=== PATIENT | female | born 1985 | race Asian ===

== ENCOUNTER 2019-01-07 02:33 | Emergency (ER) | payer OTHER ==
--- NOTE | 2019-01-07 03:17 | ED Physician Documentation ---
PD HPI ABD PAIN - Stated complaint Stated Complaint: ABD PAIN - Chief complaint Chief Complaint: Abd Pain - History obtained from History obtained from: Patient - History of Present Illness Timing - onset: Yesterday (starting after lunch, usual food at [employer], had onset of upper abd pain with nausea that has lasted all day into overnight now. Nausea with emesis x 2. Had couple loose stools. Has had similar milder symtoms with eating at times the past couple weeks, but usually improves in an hour or so.) Timing - duration: Hours (12) Timing - details: Abrupt onset, Still present, Constant Quality: Cramping, Aching, Pain Location: Epigastric. No: RUQ Improved by: No: Vomiting Worsened by: Eating, Position, Palpation. No: Breathing Associated symptoms: Nausea, Vomiting (twice). No: Fever, Diarrhea (but had 2 loose stools since onset), Constipation, Melena Similar symptoms before: No diagnosis (has had epigastric pains with eating at times the past couple weeks.) Recently seen: Not recently seen Review of Systems Constitutional: denies: Fever, Chills Nose: denies: Rhinorrhea / runny nose, Congestion Throat: denies: Sore throat Respiratory: denies: Cough GI: reports: Abdominal Pain, Nausea, Vomiting. 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 : None HEENT: None Psych: None Musculoskeletal: None Derm: None - Past Surgical History Past Surgical History: No - Present Medications Home Medications: Ambulatory Orders Medication Instructions Recorded Confirmed Acetaminophen [Tylenol] 650 mg PO Q6H PRN #30 tablet 01/07/19 Famotidine 20 mg PO DAILY #30 tablet 01/07/19 Lidocaine Viscous 2% [Xylocaine 5 ml PO Q4H PRN #100 ml 01/07/19 Viscous 2%] Ondansetron Odt [Zofran] 4 mg TL Q6H PRN #15 tablet 01/07/19 - Allergies Allergies/Adverse Reactions: Allergies Allergy/AdvReac Type Severity Reaction Status Date / Time No Known Drug Allergies Allergy Verified 01/07/19 02:40 - Social History Does the pt smoke?: No Smoking Status: Never smoker Does the pt drink ETOH?: No Does the pt have substance abuse?: No - Immunizations Immunizations are current?: Yes - POLST Patient has POLST: No PD ED PE NORMAL - Vitals Vital signs reviewed: Yes - General General: Alert and oriented X 3, No acute distress, Well developed/nourished - HEENT HEENT: Pharynx benign - Neck Neck: Supple, no meningeal sign, No adenopathy - Cardiac Cardiac: RRR, No murmur - Respiratory Respiratory: Clear bilaterally - Abdomen Abdomen: Normal bowel sounds, Soft, Non distended, No organomegaly, Other (Tender in the epigastric area. Not tender in the lower abdomen not particularly tender in the right upper quadrant.) - Female Female : Deferred - Rectal Rectal: Deferred - Back Back: No CVA TTP - Derm Derm: Normal color, Warm and dry - Extremities Extremities: No tenderness to palpate, No edema, No calf tenderness / cord - Neuro Neuro: Alert and oriented X 3, No motor deficit, Normal speech Results - Vitals Vitals: Vital Signs - 24 hr 01/07/19 01/07/19 01/07/19 02:37 02:40 03:48 Temperature 37.1 C Heart Rate 78 Respiratory 17 17 16 Rate Blood Pressure 108/75 O2 Saturation 98 01/07/19 04:50 Temperature Heart Rate 64 Respiratory 16 Rate Blood Pressure 109/73 O2 Saturation 97 Oxygen O2 Source Room air - Labs Labs: Laboratory Tests 01/07/19 01/07/19 04:30 04:30 WBC 8.9 RBC 4.42 Hgb 13.3 Hct 41.0 MCV 92.8 MCH 30.1 MCHC 32.4 RDW 11.8 L Plt Count 256 MPV 9.4 Neut # (Auto) 7.3 H Lymph # (Auto) 1.1 L [place] # (Auto) 0.3 Eos # (Auto) 0.1 Baso # (Auto) 0.0 Absolute Nucleated RBC 0.00 Nucleated RBC % 0.0 Sodium 140 Potassium 4.0 Chloride 105 Carbon Dioxide 26 Anion Gap 9.0 BUN 22 H Creatinine 0.5 Estimated GFR (MDRD) 143 Glucose 121 H Calcium 9.3 Total Bilirubin 0.9 AST 23 ALT 22 Alkaline Phosphatase 45 Total Protein 8.3 H Albumin 4.6 Globulin 3.7 Albumin/Globulin Ratio 1.2 Lipase 33 Procedures - Bedside sono Bedside sono by EMP: Right upper quadrant focused abdominal ultrasound of the gallbladder showed a possible small stone with shadowing but did not seem mobile. There is no wall thickening and no pericholecystic fluid. The possible stone was not near the neck. Common bile duct did not appear dilated. PD MEDICAL DECISION MAKING - ED course Complexity details: reviewed results, re-evaluated patient (She is feeling better after some IV fluids antiemetic and GI cocktail.), considered differential (Seems likely gastritis or food related. Consider food poisoning but she did eat at a [employer] and no other people are here with similar symptoms. She has had some milder symptoms over the past week or 2. Consider gastritis or early ulcer. Will check labs to ensure her pancreas is good and I can do bedside ultrasound to look at the gallbladder.), d/w patient Departure - Departure Disposition: Home, Self Care Clinical Impression: Epigastric pain Gastritis Qualifiers: Gastritis type: unspecified gastritis Chronicity: acute Gastritis bleeding: without bleeding Qualified Code(s): K29.00 - Acute gastritis without bleeding Condition: Stable Record reviewed to determine appropriate education?: Yes Instructions: ED PUD Vs Gastritis Follow-Up: [facility] [Provider Group] Prescriptions: Acetaminophen [Tylenol] 650 mg PO Q6H PRN #30 tablet PRN Reason: PRN PAIN &/OR FEVER Famotidine 20 mg PO DAILY #30 tablet Lidocaine Viscous 2% [Xylocaine Viscous 2%] 5 ml PO Q4H PRN #100 ml PRN Reason: Pain Ondansetron Odt [Zofran] 4 mg TL Q6H PRN #15 tablet PRN Reason: Nausea / Vomiting Comments: Frequent fluids and bland food. Use famotidine acid reducing medicine daily for the next month. Ondansetron if needed for nausea. Antacid such as Maalox or Mylanta and can use with some of the lidocaine if needed for stomach pains. Add Tylenol if needed for pains. I think this is an irritation of the stomach called gastritis. I would anticipate improvement with the above medications over the next several days to next week. Follow-up with your primary care this coming week if not fully improved or any consistent symptoms. Return as needed.
[2019-01-07] MEDS ORDERED: SODIUM CHLORIDE 0.9% 1,000 ML IV ONE (04:23)
[2019-01-07] MEDS ORDERED: MAG HYDROX/AL HYDROX/SIMETH 30 ML UDC PO STA (04:24)
[2019-01-07] MEDS ORDERED: LIDOCAINE VISCOUS 2% 15 ML UDC MM STA (04:24)
[2019-01-07] MEDS ORDERED: ONDANSETRON 4 MG/2 ML VIAL IVP STA (04:24)
[2019-01-07] MEDS ORDERED: FAMOTIDINE 20 MG/2 ML VIAL IVP STA (04:24)
[2019-01-07 04:43] LABS: BASOPHILS % (AUTO) 0.4 %; EOSINOPHILS # (AUTO) 0.1 10^3/uL (0.0-0.7); EOSINOPHILS % (AUTO) 1.3 %; HGB - HEMOGLOBIN 13.3 g/dL (12.0-16.0); LYMPHOCYTES # (AUTO) 1.1 10^3/uL (1.5-3.5); LYMPHOCYTES % (AUTO) 12.3 %; MEAN CORPUSCULAR HEMOGLOBIN 30.1 pg (27.0-31.0); MEAN CORPUSCULAR HGB CONC 32.4 g/dL (32.0-36.0); MEAN CORPUSCULAR VOLUME 92.8 fL (81.0-99.0); MEAN PLATELET VOLUME 9.4 fL (7.9-10.8); MONOCYTES # (AUTO) 0.3 10^3/uL (0.0-1.0); MONOCYTES % (AUTO) 3.8 %; NEUTROPHILS # (AUTO) 7.3 10^3/uL (1.5-6.6); PLT - PLATELET COUNT 256 10^3/uL (130-450); RED BLOOD COUNT 4.42 10^6/uL (4.20-5.40); RED CELL DISTRIBUTION WIDTH 11.8 % (12.0-15.0); WHITE BLOOD COUNT 8.9 x10^3/uL (4.8-10.8)
[2019-01-07 04:56] LABS: ALBUMIN 4.6 g/dL (3.2-5.5); ALBUMIN/GLOBULIN RATIO 1.2 (1.0-2.2); BILIRUBIN,TOTAL 0.9 mg/dL (0.2-1.0); CALCIUM 9.3 mg/dL (8.5-10.3); CREATININE 0.5 mg/dL (0.4-1.0); TOTAL PROTEIN 8.3 g/dL (6.7-8.2)
[2019-01-07 05:40] VITALS: BP 102/72
== END 2019-01-07 05:55 | disposition home or self-care (01) ==
LOC: ED 02:33
DX: K29.00 Acute gastritis without bleeding (principal)
CPT/HCPCS: 36415; 80053; 83690; 85025; 96361; 96374; 99283; 99284; A9270

== ENCOUNTER 2019-02-22 14:03 | Emergency (ER) | payer OTHER ==
[2019-02-22 14:41] LABS: BASOPHILS % (AUTO) 0.7 %; EOSINOPHILS # (AUTO) 0.3 10^3/uL (0.0-0.7); EOSINOPHILS % (AUTO) 4.3 %; HGB - HEMOGLOBIN 12.3 g/dL (12.0-16.0); LYMPHOCYTES # (AUTO) 1.6 10^3/uL (1.5-3.5); LYMPHOCYTES % (AUTO) 26.9 %; MEAN CORPUSCULAR HEMOGLOBIN 29.6 pg (27.0-31.0); MEAN CORPUSCULAR HGB CONC 32.5 g/dL (32.0-36.0); MEAN CORPUSCULAR VOLUME 90.9 fL (81.0-99.0); MEAN PLATELET VOLUME 9.8 fL (7.9-10.8); MONOCYTES # (AUTO) 0.3 10^3/uL (0.0-1.0); MONOCYTES % (AUTO) 5.4 %; NEUTROPHILS # (AUTO) 3.6 10^3/uL (1.5-6.6); NEUTROPHILS % (AUTO) 62.5 %; PLT - PLATELET COUNT 224 10^3/uL (130-450); RED BLOOD COUNT 4.16 10^6/uL (4.20-5.40); RED CELL DISTRIBUTION WIDTH 11.9 % (12.0-15.0); WHITE BLOOD COUNT 5.8 x10^3/uL (4.8-10.8)
[2019-02-22 14:59] LABS: CREATININE 0.5 mg/dL (0.4-1.0)
[2019-02-22 15:00] LABS: ALBUMIN 4.3 g/dL (3.2-5.5); ALBUMIN/GLOBULIN RATIO 1.4 (1.0-2.2); BILIRUBIN,TOTAL 0.5 mg/dL (0.2-1.0); CALCIUM 9.5 mg/dL (8.5-10.3); TOTAL PROTEIN 7.3 g/dL (6.7-8.2)
--- NOTE | 2019-02-22 16:34 | ED Physician Documentation ---
History of Present Illness - Stated complaint Stated Complaint: ABD PX - Chief complaint Chief Complaint: Abd Pain - Additonal information Additional information: This is a 33-year-old female who presents with worsened right upper quadrant pa in. Patient states that for several months she has had intermittent pain in the upper part of her abdomen and on the right side of her abdomen which has come and gone and usually starts after eating food, and lasts anywhere from minutes to several hours. This morning after eating breakfast she had worsened pain and it has persisted throughout the day so she presents here for further Evaluation. She has tried famotidine for the past month without relief. She denies vomiting but at times will have some nausea. No fever. No history of abdominal surgeries. 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 : None HEENT: None Psych: None Musculoskeletal: None Derm: None - Past Surgical History Past Surgical History: No - Present Medications Home Medications: Ambulatory Orders Medication Instructions Recorded Confirmed Acetaminophen [Tylenol] 650 mg PO Q6H PRN #30 tablet 01/07/19 Famotidine 20 mg PO DAILY #30 tablet 01/07/19 Lidocaine Viscous 2% [Xylocaine 5 ml PO Q4H PRN #100 ml 01/07/19 Viscous 2%] Ondansetron Odt [Zofran] 4 mg TL Q6H PRN #15 tablet 01/07/19 Acetaminophen 650 mg PO Q6HR #30 tablet 02/22/19 Ondansetron Odt [Zofran] 4 mg TL Q6H PRN #10 tablet 02/22/19 - Allergies Allergies/Adverse Reactions: Allergies Allergy/AdvReac Type Severity Reaction Status Date / Time No Known Drug Allergies Allergy Verified 01/07/19 02:40 - Social History Does the pt smoke?: No Smoking Status: Never smoker Does the pt drink ETOH?: No Does the pt have substance abuse?: No - Immunizations Immunizations are current?: Yes - POLST Patient has POLST: No PD ED PE NORMAL - Vitals Vital signs reviewed: Yes - General General: Alert and oriented X 3, No acute distress - HEENT HEENT: PERRL - Neck Neck: Supple, no meningeal sign - Cardiac Cardiac: RRR, No murmur - Respiratory Respiratory: Clear bilaterally - Abdomen Abdomen: Other (Soft, nondistended there is tenderness palpation in the right upper quadrant, negative Diaz sign, no guarding. No left upper quadrant or lower abdominal tenderness) - Derm Derm: Warm and dry - Extremities Extremities: No deformity - Neuro Neuro: Alert and oriented X 3 - Psych Psych: Normal mood, Normal affect Results - Vitals Vitals: Oxygen O2 Source Room air - Labs Labs: Microbiology 02/22/19 17:48 Urine Culture - Final Urine,Clean Catch >100,000 COLONIES/ML Polymicrobial growth including potential pathogens. This is suggestive of skin or other contamination. Laboratory Tests 02/22/19 02/22/19 02/22/19 14:30 14:30 17:48 WBC 5.8 RBC 4.16 L Hgb 12.3 Hct 37.8 MCV 90.9 MCH 29.6 MCHC 32.5 RDW 11.9 L Plt Count 224 MPV 9.8 Neut # (Auto) 3.6 Lymph # (Auto) 1.6 [place] # (Auto) 0.3 Eos # (Auto) 0.3 Baso # (Auto) 0.0 Absolute Nucleated RBC 0.00 Nucleated RBC % 0.0 Sodium 140 Potassium 3.6 Chloride 107 Carbon Dioxide 27 Anion Gap 6.0 BUN 21 H Creatinine 0.5 Estimated GFR (MDRD) 143 Glucose 125 H Calcium 9.5 Total Bilirubin 0.5 AST 19 ALT 18 Alkaline Phosphatase 47 Total Protein 7.3 Albumin 4.3 Globulin 3.0 Albumin/Globulin Ratio 1.4 Lipase 45 Urine Color YELLOW Urine Clarity HAZY Urine pH 6.5 Ur Specific [place] 1.025 Urine Protein NEGATIVE Urine Glucose (UA) NEGATIVE Urine Ketones NEGATIVE Urine Occult Blood MODERATE H Urine Nitrite NEGATIVE Urine Bilirubin NEGATIVE Urine Urobilinogen 0.2 (NORMAL) Ur Leukocyte Esterase SMALL H Urine RBC 6-10 H Urine WBC >25 H Ur Squamous Epith Cells FEW Squamous Amorphous Sediment Rare Urine Bacteria Few Ur Microscopic Review INDICATED Urine Culture Comments INDICATED - Rads (name of study) RUQ Radiology: Other (Cholelithiasis with stone in the gallbaldder neck, no signs of cholecystitis) PD MEDICAL DECISION MAKING - ED course Complexity details: considered differential (Biliary colic, cholecystitis, choledocolithiasis, gastritis, pancreatitis) ED course: Pt presents with worsening of intermittent RUQ abdominal pain that has been present for months and not responding to famotidine. Labs are unrevealing with no leukocytosis or LFT changes. HCG negative. US shows multiple gallstones. Her history of worsening after eating is consistent with biliary colic. After oxycodone and zofran her pain is almost completely gone and she is able to tolerate PO without issue. I discussed that she needs close follow up with a general surgeon and cholecystectomy. I discussed return precautions with any worsening, persistent vomiting, fever, jaundice, or other concerning symptoms. UA shows WBC, but patient has no dysuria or lower abdominal pain or fever. We will let this culture. Pt agrees and was discharged home. Follow up on Urine culture on 02/25 shows polymicrobial growth, making UTI unlikely. Departure - Departure Disposition: Home, Self Care Clinical Impression: Biliary colic Condition: Good Instructions: ED Gallstone W Biliary Colic Follow-Up: Clara Messer MD [Provider Admit Priv/Credential] - Prescriptions: Acetaminophen 650 mg PO Q6HR #30 tablet Ondansetron Odt [Zofran] 4 mg TL Q6H PRN #10 tablet PRN Reason: Nausea / Vomiting Comments: You have a stone in the neck of your gallbladder which is likely causing your pain. I am glad you are feeling better but you do need to get her gallbladder removed or your pain will likely continue to reoccur. Please follow-up with your primary care provider and obtain a referral to general surgery. I have a lso provided you with contact information for Dr. Messer, a general surgeon here at [facility]. You may take the Zofran and Tylenol for your symptoms, if you are having severe pain, persistent vomiting, or other concerning symptoms, return to the emergency department for reevaluation. Avoid fatty meals as this can make your pain worse Forms: Activity restrictions Discharge Date/Time: 02/22/19 18:36
--- NOTE | 2019-02-22 17:11 | Ultrasound Report ---
Reason: upper abd pain, nausea Procedure Date: 02/22/2019 Accession Number: [id number] / [id number] Procedure: US - Abdomen Limited CPT Code: Final Report FULL RESULT: EXAM: ABDOMEN ULTRASOUND LIMITED, RUQ EXAM DATE: 02/22/2019 04:47 PM. CLINICAL HISTORY: Upper abdominal pain, nausea. COMPARISON: None. TECHNIQUE: Real-time scanning was performed with static images obtained. FINDINGS: Liver: Mildly hyperechoic liver echotexture. No focal lesions. 15.9 cm. Main portal vein flow: Hepatopetal. Gallbladder: There are two mobile stones within the gallbladder measuring 2.0 and 1.6 cm. A 1.5 cm gallbladder neck stone is also noted. Gallbladder is mildly distended. No gallbladder wall thickening or pericholecystic fluid collections. Biliary System: CBD measures 5 mm. No intrahepatic or extrahepatic ductal dilatation. Other: No right hydronephrosis. The visualized pancreas is unremarkable. IMPRESSION: 1. Distended gallbladder containing stones measuring up to 2.0 cm. No additional findings suggestive of acute cholecystitis or bile duct obstruction. RADIA
[2019-02-22] MEDS ORDERED: oxyCODONE 5 MG TABLET PO STA (17:17)
[2019-02-22] MEDS ORDERED: ACETAMINOPHEN 325 MG TABLET PO STA (17:17)
[2019-02-22] MEDS ORDERED: ONDANSETRON ODT 4 MG TABLET TL STA (17:17)
[2019-02-22 18:26] LABS: BILIRUBIN,URINE NEGATIVE (NEGATIVE); GLUCOSE, URINE (UA) NEGATIVE (NEGATIVE); KETONES,URINE (UA) NEGATIVE (NEGATIVE); LEUKOCYTE ESTERASE, URINE SMALL (NEGATIVE); NITRITE,URINE NEGATIVE (NEGATIVE); OCCULT BLOOD,URINE MODERATE (NEGATIVE); PH,URINE 6.5 PH (5.0-7.5); PROTEIN,URINE NEGATIVE (NEGATIVE); UROBILINOGEN,URINE 0.2 (NORMAL) E.U./dL (NORMAL)
[2019-02-22 18:27] LABS: CLARITY,URINE HAZY (CLEAR)
[2019-02-22 18:38] LABS: AMORPHOUS SEDIMENT,UR Rare /LPF; BACTERIA,URINE Few /HPF (None Seen); SQUAMOUS EPITHELIAL CELL,UR FEW Squamous (<= Few)
[2019-02-22 18:56] VITALS: BP 130/74
== END 2019-02-22 18:36 | disposition home or self-care (01) ==
LOC: ED 14:03
DX: K80.20 Calculus of gallbladder without cholecystitis without obstruction (principal)
CPT/HCPCS: 36415; 76705; 80053; 81001; 83690; 85025; 87086; 99284; A9270; Q0162; 81003

== ENCOUNTER 2019-03-10 08:24 | Day surgery (SDC) | payer OTHER ==
[2019-03-10] MEDS ORDERED: LACTATED RINGERS 1,000 ML IV ONE ×2 (08:36→12:48)
[2019-03-10] MEDS ORDERED: CEFAZOLIN SODIUM IN 0.9 % NACL 2 GM/100 ML BAG IV ONE (08:52)
[2019-03-10] MEDS: ENOXAPARIN 30 MG/0.3 ML SYRINGE SUBQ ONE ×2 (09:18→12:42)
[2019-03-10 09:19] LABS: HCG UR QUAL NEGATIVE
--- NOTE | 2019-03-10 10:01 | ANESTHESIA ---
Pre-Anesthesia VS, & Labs - Diagnosis cholecystitis, cholelithiasis - Procedure Lap tanika Vital Signs: Temp Pulse Resp BP Pulse Ox 36.0 C L 54 L 16 121/70 97 03/10/19 08:36 03/10/19 08:36 03/10/19 08:36 03/10/19 08:36 03/10/19 08:36 Height 5 ft Weight (kg) 70 kg Body Mass Index 28.3 - NPO >8 hours - Is Patient ?: No Home Medications and Allergies Home Medications: Ambulatory Orders No Known Home Medications 03/06/19 No Known Home Medications 03/06/19 Allergies/Adverse Reactions: Allergies Allergy/AdvReac Type Severity Reaction Status Date / Time No Known Drug Allergies Allergy Verified 01/07/19 02:40 Anes History & Medical History - Anesthetic History Family history of Anesthesia Complications: Denies Family history of Malignant Hyperthermia: Denies - Medical History Cardiovascular: reports: None Pulmonary: reports: None Gastrointestinal: reports: GERD, Cholelithiasis Urinary: reports: None Neuro: reports: None Musculoskeletal: reports: None Endocrine/Autoimmune: reports: None Blood Disorders: reports: None Skin: reports: None Smoking Status: Never smoker Exam General: Alert, Oriented x3, Cooperative, No acute distress Dental: WNL Mouth Openin Fingerbreadth Neck Mobility: Normal Mallampati classification: II Thyromental Distance: greater than 6 cm Respiratory: Lungs clear, Normal breath sounds, No respiratory distress, No accessory muscle use Cardiovascular: Regular rate, Normal S1, Normal S2, No murmurs Mental/Cognitive Status: Alert/Oriented X3, Normal for patient Plan Anesthesia Type: General Consent for Procedure(s) Verified and Reviewed: Yes Code Status: Attempt Resuscitation ASA classification: 1-Healthy patient Is this case an emergency?: No
[2019-03-10] MEDS ORDERED: LIDOCAINE 1%-EPI 1:100000 20 ML MDV ONE (10:15)
[2019-03-10] MEDS ORDERED: DEXAMETHASONE 4 MG/ML VIAL IVP ONE (11:45)
[2019-03-10] MEDS ORDERED: PROPOFOL 200 MG/20 ML VIAL IVP ONE (11:45)
[2019-03-10] MEDS ORDERED: fentaNYL 250 MCG/5 ML VIAL IVP ONE (11:45)
[2019-03-10] MEDS ORDERED: KETOROLAC 30 MG/ML VIAL IVP ONE (11:45)
[2019-03-10] MEDS ORDERED: GLYCOPYRROLATE 1 MG/5 ML VIAL IVP ONE (11:45)
[2019-03-10] MEDS ORDERED: NEOSTIGMINE 1 MG/1 ML 10 ML MDV IVP ONE (11:45)
[2019-03-10] MEDS ORDERED: ONDANSETRON 4 MG/2 ML VIAL IVP ONE (11:45)
[2019-03-10] MEDS ORDERED: ROCURONIUM 50 MG/5 ML VIAL IVP ONE (11:45)
[2019-03-10] MEDS ORDERED: ePHEDrine 50 MG/ML VIAL IVP ONE (11:45)
[2019-03-10] MEDS ORDERED: MIDAZOLAM 2 MG/2 ML VIAL IVP ONE (11:45)
[2019-03-10] MEDS ORDERED: LIDOCAINE-MPF 2% 5 ML VIAL IM ONE (11:45)
[2019-03-10] MEDS ORDERED: oxyCODONE 5 MG TABLET PO PRN (14:11)
[2019-03-10] MEDS ORDERED: ONDANSETRON 4 MG/2 ML VIAL IVP PRN (14:11)
[2019-03-10] MEDS ORDERED: IBUPROFEN 600 MG TABLET PO PRN (14:11)
[2019-03-10] MEDS ORDERED: ACETAMINOPHEN 325 MG TABLET PO PRN (14:11)
--- NOTE | 2019-03-10 14:13 | IMMEDIATE POSTOPERATIVE NOTE ---
Immediate Postoperative Note - Procedure Note Procedure Date: 03/10/19 Pre-Op Diagnosis: Cholecystitis / lithiasis Procedure: Lap tanika Post-Op Diagnosis: Same Primary Surgeon: Janie Anesthesia Type: General ET tube, Local Findings: Markedly enlarged GB w/stones Complications: No complications Estimated Blood Loss (in cc): 5 Specimens and Cultures: Gallbladder
[2019-03-10] MEDS: fentaNYL 100 MCG/2 ML VIAL ONE ×4 (14:23→14:38)
[2019-03-10] MEDS ORDERED: ONDANSETRON 4 MG/2 ML VIAL ONE (15:24)
[2019-03-10] MEDS ORDERED: oxyCODONE 5 MG TABLET ONE (16:25)
[2019-03-10 17:08] VITALS: BP 106/75
--- NOTE | 2019-03-10 20:32 | OPERATIVE REPORT ---
DATE OF SERVICE: 03/10/2019 Physician: Shay Lima DO DATE OF SURGERY: 03/10/2019 PREOPERATIVE DIAGNOSIS: Cholecystitis/cholelithiasis. POSTOPERATIVE DIAGNOSIS: Cholecystitis/cholelithiasis. PROCEDURE PERFORMED: Laparoscopic cholecystectomy. SURGEON: Shay Lima DO RICARDO: Evan Conway MD FORGE HELPER: Lauro Hamilton CRNA TYPE OF ANESTHESIA: General endotracheal tube with local assist. ESTIMATED BLOOD LOSS: 5 mL. FINDINGS: Patient's gallbladder was markedly enlarged and had 3 large stones down near the neck. Ot herwise, no other significant abnormalities were visualized. COMPLICATIONS: None. CONDITION: Stable upon transfer to recovery. HISTORY: Alfonso Sales is a 33-year-old female with signs and symptoms consistent with cholecystitis and ultrasound evidence indicating cholelithiasis. There was no history of elevated liver enzymes, j aundice, acholic stools or darkened urine. The ultrasound was positive for stones. PROCEDURE IN DETAIL: The patient was taken to the operating room and under the above-mentioned anest hetic, prepped and draped in the usual sterile manner. A vertically oriented intraumbilical incision was utilized to gain entrance into the abdominal cavity by way of the Visiport system. Once in the abdominal cavity, the 3 working ports were placed under direct vision and the fundus of the gallbladd er identified and placed on anterior traction. The infundibulum was identified and placed on gentle anterolateral traction. Dissection was carried down to visualize the cystic duct where it joined the common bile duct but at no time was the common bile duct manipulated, injured or otherwise harmed. Eventually, the cystic duct was dissected cleanly and our attention was then turned to the cystic art jocelynn. It likewise was dissected and skeletonized. It was triply stapled and divided between the top 2 holly. The cystic duct was likewise triply stapled and divided between the top 2 holly. The g allbladder was then excised out of the liver bed using electrocautery and eventually removed through the umbilical port in the usual manner. The EndoCatch bag was utilized. Re-examination of the liver bed revealed no evidence for bleeding or bile leak and after copious irri gation with sterile saline solution and evacuation of as much of this irrigant as possible, a piece o f Surgicel was placed for added hemostatic and bacteriostatic security. The patient was then placed in the supine position and the umbilical port was closed with a single 0-Vicryl suture using the [facility] device. The pneumoperitoneum was then released, as we visualized the 5 mm ports being re moved and finding no bleeding. The fascia was then approximated using 0-Vicryl and the skin margins all joined with running undyed subcuticular 4-0 Monocryl and Dermabond over that. The patient was tr ansported to recovery in stable condition. TD: 03/10/2019 14:20
== END 2019-03-10 08:25 | disposition home or self-care (01) ==
LOC: SDS 08:24
PROVIDERS: ATTEND Surgery
PROC: 0FT44ZZ Resection of Gallbladder, Percutaneous Endoscopic Approach (ICD-10-PCS; principal; 2019-03-10 09:15)
DX: K80.10 Calculus of gallbladder with chronic cholecystitis without obstruction (principal)
CPT/HCPCS: 47562; 81025; A9270; J0690; J1650; J3010; J7120

== ENCOUNTER 2019-03-21 09:45 | Emergency (ER) | payer OTHER ==
[2019-03-21 11:28] LABS: BASOPHILS # (AUTO) 0.1 10^3/uL (0.0-0.1); BASOPHILS % (AUTO) 0.9 %; EOSINOPHILS # (AUTO) 0.4 10^3/uL (0.0-0.7); EOSINOPHILS % (AUTO) 6.7 %; HGB - HEMOGLOBIN 12.4 g/dL (12.0-16.0); LYMPHOCYTES # (AUTO) 1.4 10^3/uL (1.5-3.5); LYMPHOCYTES % (AUTO) 24.5 %; MEAN CORPUSCULAR HEMOGLOBIN 29.2 pg (27.0-31.0); MEAN CORPUSCULAR VOLUME 91.3 fL (81.0-99.0); MEAN PLATELET VOLUME 9.5 fL (7.9-10.8); MONOCYTES # (AUTO) 0.3 10^3/uL (0.0-1.0); MONOCYTES % (AUTO) 5.7 %; NEUTROPHILS # (AUTO) 3.6 10^3/uL (1.5-6.6); NEUTROPHILS % (AUTO) 61.9 %; PLT - PLATELET COUNT 252 10^3/uL (130-450); RED BLOOD COUNT 4.25 10^6/uL (4.20-5.40); RED CELL DISTRIBUTION WIDTH 12.1 % (12.0-15.0); WHITE BLOOD COUNT 5.8 x10^3/uL (4.8-10.8)
[2019-03-21 11:45] LABS: ALBUMIN 4.5 g/dL (3.2-5.5); ALBUMIN/GLOBULIN RATIO 1.4 (1.0-2.2); BILIRUBIN,TOTAL 0.8 mg/dL (0.2-1.0); CALCIUM 9.3 mg/dL (8.5-10.3); CREATININE 0.7 mg/dL (0.4-1.0); TOTAL PROTEIN 7.8 g/dL (6.7-8.2)
[2019-03-21 12:45] LABS: BILIRUBIN,URINE NEGATIVE (NEGATIVE); GLUCOSE, URINE (UA) NEGATIVE (NEGATIVE); KETONES,URINE (UA) NEGATIVE (NEGATIVE); LEUKOCYTE ESTERASE, URINE LARGE (NEGATIVE); NITRITE,URINE NEGATIVE (NEGATIVE); OCCULT BLOOD,URINE SMALL (NEGATIVE); PROTEIN,URINE NEGATIVE (NEGATIVE); UROBILINOGEN,URINE 0.2 (NORMAL) E.U./dL (NORMAL)
[2019-03-21 12:46] LABS: CLARITY,URINE HAZY (CLEAR)
[2019-03-21 12:47] LABS: HCG UR QUAL NEGATIVE
[2019-03-21] MEDS ORDERED: FAMOTIDINE 20 MG TABLET PO STA (12:53)
[2019-03-21] MEDS ORDERED: ACETAMINOPHEN 325 MG TABLET PO STA (12:53)
[2019-03-21] MEDS ORDERED: LIDOCAINE VISCOUS 2% 15 ML UDC MM STA (12:53)
[2019-03-21] MEDS ORDERED: MAG HYDROX/AL HYDROX/SIMETH 30 ML UDC PO STA (12:53)
[2019-03-21 13:01] LABS: AMORPHOUS SEDIMENT,UR Moderate /LPF; BACTERIA,URINE Rare /HPF (None Seen); RBC,URINE 0-5 /HPF (0-5); SQUAMOUS EPITHELIAL CELL,UR MOD Squamous (<= Few)
--- NOTE | 2019-03-21 13:33 | ED Physician Documentation ---
PD HPI ABD PAIN - Stated complaint Stated Complaint: ABD PX - Chief complaint Chief Complaint: Abd Pain - History obtained from History obtained from: Patient - History of Present Illness Timing - onset: How many days ago (few) Timing - duration: Days (few) Timing - details: Gradual onset, Intermittant Quality: Aching, Pain, Other (burning) Location: Epigastric Radiation: No: Lower back Improved by: Laying still, Position Worsened by: Eating. No: Breathing, Palpation Associated symptoms: Nausea. No: Fever, Vomiting, Diarrhea Recently seen: Surgery (11 days ago, had CCY due to cholecystitis and RUQ abd pain. Incisions healing okay without infection. No fevers.) Review of Systems Constitutional: denies: Fever, Myalgias Nose: denies: Rhinorrhea / runny nose, Congestion Throat: denies: Sore throat Respiratory: denies: Cough GI: reports: Abdominal Pain, Constipation, Diarrhea. denies: Abdominal Swelling, Vomiting : denies: Dysuria, Frequency Skin: denies: Rash, Lesions PD PAST MEDICAL HISTORY - Past Medical History Past Medical History: Yes Cardiovascular: None Respiratory: None Neuro: None Endocrine/Autoimmune: None GI: GERD, Cholelithiasis SDE: None : None HEENT: Chronic vision loss Psych: None Musculoskeletal: None Derm: None - Past Surgical History Past Surgical History: Yes General: Cholecystectomy (11 days ago) - Present Medications Home Medications: Ambulatory Orders Medication Instructions Recorded Confirmed oxyCODONE [Roxicodone] 5 mg PO Q6H PRN #30 tablet 03/10/19 Acetaminophen [Tylenol] 650 mg PO Q6H PRN #30 tablet 03/21/19 Famotidine 20 mg PO DAILY #30 tablet 03/21/19 Lidocaine Viscous 2% [Xylocaine 5 ml PO Q4H PRN #100 ml 03/21/19 Viscous 2%] - Allergies Allergies/Adverse Reactions: Allergies Allergy/AdvReac Type Severity Reaction Status Date / Time No Known Drug Allergies Allergy Verified 03/21/19 10:10 - Social History Does the pt smoke?: No Smoking Status: Never smoker Does the pt drink ETOH?: No Does the pt have substance abuse?: No - Immunizations Immunizations are current?: Yes - POLST Patient has POLST: No PD ED PE NORMAL - Vitals Vital signs reviewed: Yes - General General: Alert and oriented X 3, No acute distress, Well developed/nourished - HEENT HEENT: Pharynx benign - Neck Neck: Supple, no meningeal sign, No adenopathy - Cardiac Cardiac: RRR, No murmur - Respiratory Respiratory: Clear bilaterally - Abdomen Abdomen: Normal bowel sounds, Soft, Non distended, No organomegaly, Other (laparoscopy wounds well healing without signs of infection.). No: Non tender (tender without guarding in epigastric area. Not tender RUQ. ) - Rectal Rectal: Deferred - Back Back: No CVA TTP - Derm Derm: Normal color, Warm and dry - Extremities Extremities: No edema, No calf tenderness / cord Results - Vitals Vitals: Vital Signs - 24 hr 03/21/19 03/21/19 10:10 13:34 Temperature 36.6 C 36.7 C Heart Rate 84 71 Respiratory 15 12 Rate Blood Pressure 119/59 L 111/63 O2 Saturation 97 98 Oxygen O2 Source Room air - Labs Labs: Laboratory Tests 03/21/19 03/21/19 03/21/19 11:14 11:14 11:14 WBC 5.8 RBC 4.25 Hgb 12.4 Hct 38.8 MCV 91.3 MCH 29.2 MCHC 32.0 RDW 12.1 Plt Count 252 MPV 9.5 Neut # (Auto) 3.6 Lymph # (Auto) 1.4 L Villalba # (Auto) 0.3 Eos # (Auto) 0.4 Baso # (Auto) 0.1 Absolute Nucleated RBC 0.00 Nucleated RBC % 0.0 Sodium 138 Potassium 3.5 Chloride 103 Carbon Dioxide 27 Anion Gap 8.0 BUN 15 Creatinine 0.7 Estimated GFR (MDRD) 97 Glucose 108 H Calcium 9.3 Total Bilirubin 0.8 AST 21 ALT 27 Alkaline Phosphatase 50 Total Protein 7.8 Albumin 4.5 Globulin 3.3 Albumin/Globulin Ratio 1.4 Lipase 42 Urine Color YELLOW Urine Clarity HAZY Urine pH 6.0 Ur Specific [place] 1.015 Urine Protein NEGATIVE Urine Glucose (UA) NEGATIVE Urine Ketones NEGATIVE Urine Occult Blood SMALL H Urine Nitrite NEGATIVE Urine Bilirubin NEGATIVE Urine Urobilinogen 0.2 (NORMAL) Ur Leukocyte Esterase LARGE H Urine RBC 0-5 Urine WBC 6-10 H Ur Squamous Epith Cells MOD Squamous H Amorphous Sediment Moderate Urine Bacteria Rare Ur Microscopic Review INDICATED Urine Culture Comments NOT INDICATED Urine HCG, Qual 03/21/19 11:14 WBC RBC Hgb Hct MCV MCH MCHC RDW Plt Count MPV Neut # (Auto) Lymph # (Auto) Villalba # (Auto) Eos # (Auto) Baso # (Auto) Absolute Nucleated RBC Nucleated RBC % Sodium Potassium Chloride Carbon Dioxide Anion Gap BUN Creatinine Estimated GFR (MDRD) Glucose Calcium Total Bilirubin AST ALT Alkaline Phosphatase Total Protein Albumin Globulin Albumin/Globulin Ratio Lipase Urine Color Urine Clarity Urine pH Ur Specific [place] 1.015 Urine Protein Urine Glucose (UA) Urine Ketones Urine Occult Blood Urine Nitrite Urine Bilirubin Urine Urobilinogen Ur Leukocyte Esterase Urine RBC Urine WBC Ur Squamous Epith Cells Amorphous Sediment Urine Bacteria Ur Microscopic Review Urine Culture Comments Urine HCG, Qual NEGATIVE PD MEDICAL DECISION MAKING - ED course Complexity details: re-evaluated patient (improvement with GI cocktail, per nursing. ), considered differential (seems gastritis symptoms and not related to recent surgery itself. Abd feels benign otherwise and no signs of wound infections. Labs are good. ), d/w patient Departure - Departure Disposition: 01 Home, Self Care Clinical Impression: Epigastric pain Condition: Stable Record reviewed to determine appropriate education?: Yes Instructions: ED Epigastric Pain [facility] Follow-Up: Shay Lima DO [Provider Admit Priv/Credential] - Prescriptions: Acetaminophen [Tylenol] 650 mg PO Q6H PRN #30 tablet PRN Reason: PRN PAIN &/OR FEVER Famotidine 20 mg PO DAILY #30 tablet Lidocaine Viscous 2% [Xylocaine Viscous 2%] 5 ml PO Q4H PRN #100 ml PRN Reason: Pain Comments: Your blood count and blood tests for pancreas and liver are normal. I think this may be an irritation of the stomach and we can treat it with acid reducing medicine and antacids. Use famotidine daily for the next couple of weeks. Regular diet except for low- fat. Add Tylenol every 4-6 hours if needed for pain. You can also use antacids such as Maalox or Mylanta combined with some of the lidocaine to help as well. Recheck if not improved over the next several days. Return if worsening Discharge Date/Time: 03/21/19 13:51
[2019-03-21 13:35] VITALS: BP 111/63
== END 2019-03-21 13:51 | disposition home or self-care (01) ==
LOC: ED 09:45
DX: R10.13 Epigastric pain (principal); Z90.49 Acquired absence of other specified parts of digestive tract
CPT/HCPCS: 36415; 80053; 81001; 81025; 83690; 85025; 99283; 99284; A9270; 81003; 87086

== ENCOUNTER 2021-05-17 12:34 | Emergency (ER) | payer OTHER ==
[2021-05-17 12:41] VITALS: BP 133/92
--- NOTE | 2021-05-17 12:47 | ED Physician Documentation ---
PD HPI URI - Stated complaint Stated Complaint: COUGH - Chief complaint Chief Complaint: Resp - History obtained from History obtained from: Patient - History of Present Illness Timing - onset: How many days ago (several) Timing duration: Days Associated symptoms: Chills, Productive cough (yellow sputum). 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 Returned yesterday with increasing symptoms.). No: Sick contact, Unimmunized, COPD / asthma Similar symptoms before: Has not had sx before Recently seen: Not recently seen Review of Systems Constitutional: reports: Chills, Myalgias. denies: Fever Nose: reports: Congestion. denies: Rhinorrhea / runny nose Throat: denies: Sore throat Respiratory: reports: Cough. 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 HEENT: Chronic vision loss Psych: None Musculoskeletal: None Derm: None - Past Surgical History Past Surgical History: Yes General: Cholecystectomy (11 days ago) - Present Medications Home Medications: Ambulatory Orders Medication Instructions Recorded Confirmed Amoxicillin 500 mg PO TID #20 cap 05/17/21 Benzonatate [Tessalon] 100 mg PO TID PRN #20 cap 05/17/21 Pantoprazole [Protonix] 40 mg PO DAILY 05/17/21 05/17/21 dexAMETHasone [Decadron] 4 mg PO DAILY #5 tablet 05/17/21 - Allergies Allergies/Adverse Reactions: Allergies Allergy/AdvReac Type Severity Reaction Status Date / Time No Known Drug Allergies Allergy Verified 05/17/21 12:41 - Social History Does the pt smoke?: No Smoking Status: Never smoker Does the pt drink ETOH?: No Does the pt have substance abuse?: No - Immunizations Immunizations are current?: Yes - POLST Patient has POLST: No PD ED PE NORMAL - Vitals Vital signs reviewed: Yes - General General: Alert and oriented X 3, No acute distress, Well developed/nourished - HEENT HEENT: Ears normal, Moist mucous membranes, Pharynx benign - Neck Neck: Supple, no meningeal sign, No adenopathy - Cardiac Cardiac: RRR, No murmur - Respiratory Respiratory: Clear bilaterally - Abdomen Abdomen: Soft, Non tender - Derm Derm: Normal color, Warm and dry - Extremities Extremities: No edema, No calf tenderness / cord - Neuro Neuro: Alert and oriented X 3, Normal speech Results - Vitals Vitals: Vital Signs - 24 hr 05/17/21 12:37 Temperature 36.1 C L Heart Rate 100 Respiratory 16 Rate Blood Pressure 133/92 H O2 Saturation 99 Oxygen O2 Source Room air PD MEDICAL DECISION MAKING - ED course Complexity details: considered differential (consider viral URI such as COVID or RSV. HOwever having mainly cough with yellow sputum, so consider bacterial bronchitis. Lungs sound clear and sats good, so defer CXR. ), d/w patient Departure - Departure Disposition: 01 Home, Self Care Clinical Impression: Bronchitis Upper respiratory infection Qualifiers: URI type: unspecified URI Qualified Code(s): J06.9 - Acute upper respiratory infection, unspecified Condition: Stable Record reviewed to determine appropriate education?: Yes Instructions: ED Upper Resp Infec Abx Tx Follow-Up: [facility] [Provider Group] Prescriptions: Amoxicillin 500 mg PO TID #20 cap dexAMETHasone [Decadron] 4 mg PO DAILY #5 tablet Benzonatate [Tessalon] 100 mg PO TID PRN #20 cap PRN Reason: Cough Comments: Stay well-hydrated. Tylenol or ibuprofen if needed for pains or fevers. Tessalon/benzonatate as needed for cough. We did do a Covid test and this will result in the next couple of days. Rest at home until the results. This makes sense since you are ill anyway even if it is not Covid. Amoxicillin three times daily for possible bacterial bronchitis. Decadron steroid daily for inflammation of the airways. These should help with illness. You have a Covid test pending. You need to self quarantine until the result is done and negative. Do not leave your house. Do not get near anybody. The results should be done in 48 to 72 hours, but sometimes longer. We will call with a positive result, the fastest way to get a negative result for co nfirmation though is to go to the hospital website at [email or web address], click [facility] the my [facility] tab and sign up for the patient portal. If any friends or family get sick and would like to have a Covid test done, but do not have signs or symptoms that would necessitate being hospitalized, we encourage testing throughone of the local pharmacies or the Health Department. Call them to schedule an appointment. Inspected your prescription to [facility] pharmacy in [place]. Forms: Activity restrictions Discharge Date/Time: 05/17/21 13:32
[2021-05-17] MEDS ORDERED: CHERRY SYRUP 10 ML UDC PO ONE (13:04)
[2021-05-17] MEDS ORDERED: BENZONATATE 100 MG CAPSULE PO STA (13:04)
[2021-05-17] MEDS ORDERED: DEXAMETHASONE 10 MG/ML VIAL PO STA (13:04)
[2021-05-17] MEDS ORDERED: AMOXICILLIN 250 MG CAPSULE PO STA (13:04)
== END 2021-05-17 13:32 | disposition home or self-care (01) ==
LOC: ED 12:34
DX: U07.1 COVID-19 (principal); J40 Bronchitis, not specified as acute or chronic
CPT/HCPCS: 87635; 99282; 99283; A9270

== ENCOUNTER 2021-12-29 09:47 | Emergency (ER) | payer OTHER ==
[2021-12-29 12:10] LABS: B. PARAPERTUSSIS- RESP PCR PAN NOT DETECTED; B. PERTUSSIS- RESP PCR PANEL NOT DETECTED; C. PNEUMONIAE- RESP PCR PANEL NOT DETECTED; CORONAVIRUS 229E-RESP PCR NOT DETECTED; CORONAVIRUS HKU1-RESP PCR NOT DETECTED; CORONAVIRUS NL63-RESP PCR NOT DETECTED; CORONAVIRUS OC43-RESP PCR NOT DETECTED; HUMAN METAPNEUMOVIRUS NOT DETECTED; INFLUENZA A- RESP PCR PANEL NOT DETECTED; INFLUENZA B - RESP PCR PANEL NOT DETECTED; M. PNEUMONIAE- RESP PCR PANEL NOT DETECTED; PARAINFLUENZA VIRUS 1 NOT DETECTED; PARAINFLUENZA VIRUS 2 NOT DETECTED; PARAINFLUENZA VIRUS 3 NOT DETECTED; PARAINFLUENZA VIRUS 4 NOT DETECTED; RHINOVIRUS/ENTEROVIRUS NOT DETECTED; RSV- RESP PCR PANEL NOT DETECTED; SARS-CoV-2 -RESP PCR PANEL NOT DETECTED
--- NOTE | 2021-12-29 12:45 | ED Physician Documentation ---
PD HPI URI - Stated complaint Stated Complaint: SOA - Chief complaint Chief Complaint: Heent - History obtained from History obtained from: Patient - History of Present Illness Timing - onset: How many days ago (3) Timing duration: Days (3) Timing details: Gradual onset Pain level max: 0 Pain level now: 0 Associated symptoms: Nasal congestion, Rhinorrhea, Dry cough. No: Fever, Chills, Hemoptysis, Chest pain, Dyspnea Contributing factors: Travel Improves by: Rest Worsened by: Activity Recently seen: Not recently seen - Additional information Additional information: Patient is a 36-year-old female who is active [employer]. She states she recently returned from [place] and has had rhinorrhea, cough and congestion. Took a COVID test that was negative. She states she felt slightly lightheaded today. She is supposed to work today, but was told to come here for a work note. No history of asthma or COPD. Denies any possibility of . No chest pain. 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 HEENT: Chronic vision loss Psych: None Musculoskeletal: None Derm: None - Past Surgical History Past Surgical History: Yes General: Cholecystectomy (11 days ago) - Present Medications Home Medications: Ambulatory Orders Medication Instructions Recorded Confirmed No Known Home Medications 12/29/21 12/29/21 - Allergies Allergies/Adverse Reactions: Allergies Allergy/AdvReac Type Severity Reaction Status Date / Time No Known Drug Allergies Allergy Verified 12/29/21 10:30 - Social History Does the pt smoke?: No Smoking Status: Never smoker Does the pt drink ETOH?: No Does the pt have substance abuse?: No - Immunizations Immunizations are current?: Yes - POLST Patient has POLST: No PD ED PE NORMAL - Vitals Vital signs reviewed: Yes - General General: Alert and oriented X 3, No acute distress, Well developed/nourished - HEENT HEENT: PERRL, Ears normal, Moist mucous membranes, Pharynx benign - Neck Neck: Supple, no meningeal sign - Cardiac Cardiac: RRR, Strong equal pulses - Respiratory Respiratory: No respiratory distress, Clear bilaterally - Abdomen Abdomen: Soft, Non tender, Non distended - Back Back: No spinal TTP - Derm Derm: Warm and dry, No rash - Extremities Extremities: No edema, No calf tenderness / cord - Neuro Neuro: Alert and oriented X 3 - Psych Psych: Normal mood, Normal affect Results - Vitals Vitals: Vital Signs - 24 hr 12/29/21 12/29/21 10:27 12:52 Temperature 36.8 C 36.6 C Heart Rate 70 74 Respiratory 16 14 Rate Blood Pressure 123/78 119/78 O2 Saturation 99 100 Oxygen O2 Source Room air - Labs Labs: Laboratory Tests 12/29/21 12/29/21 10:33 12:19 Nasal Adenovirus (PCR) NOT DETECTED Nasal B. parapertussis DNA (PCR) NOT DETECTED Nasal Coronavir 229E PCR NOT DETECTED Nasal Coronavir HKU1 PCR NOT DETECTED Nasal Coronavir NL63 PCR NOT DETECTED Nasal Coronavir OC43 PCR NOT DETECTED Nasal Enterovir/Rhinovir PCR NOT DETECTED Nasal Influenza B PCR NOT DETECTED Nasal Influenza A PCR NOT DETECTED Nasal Parainfluen 1 PCR NOT DETECTED Nasal Parainfluen 2 PCR NOT DETECTED Nasal Parainfluen 3 PCR NOT DETECTED Nasal Parainfluen 4 PCR NOT DETECTED Nasal RSV (PCR) NOT DETECTED Nasal B.pertussis DNA PCR NOT DETECTED Nasal C.pneumoniae (PCR) NOT DETECTED Shamar Human Metapneumo PCR NOT DETECTED Nasal M.pneumoniae (PCR) NOT DETECTED Nasal SARS-CoV-2 (PCR) NOT DETECTED Group A Strep Rapid Negative PD MEDICAL DECISION MAKING - ED course Complexity details: reviewed results, considered differential (No evidence of pneumonia, sepsis, pulmonary embolus), d/w patient ED course: Patient is well-appearing, nontoxic. Afebrile. No hypoxia or respiratory distress. Negative respiratory PCR. Negative strep test. We will continue supportive care and have her follow-up with her doctor for further care. Jero pruitt counseled regarding signs and symptoms for which I believe and urgent re- evaluation would be necessary. Patient with good understanding of and agreement to plan and is comfortable going home at this time This document was made in part using voice recognition software. While efforts are made to proofread this document, sound alike and grammatical errors may occur. Departure - Departure Disposition: 01 Home, Self Care Clinical Impression: Viral URI Condition: Good Instructions: ED Viral Syndrome Follow-Up: your,doctor in 1 week [Other] Comments: Drink plenty of fluids and rest. Return if you worsen. Please follow-up with your doctor for further care. Forms: Activity restrictions Discharge Date/Time: 12/29/21 12:53
[2021-12-29 12:51] LABS: RAPID STREP SCREEN Negative (Negative)
--- NOTE | 2021-12-29 12:51 | XRAY Report ---
PROCEDURE: Chest 1 View X-Ray INDICATIONS: Shortness of breath TECHNIQUE: One view of the chest was acquired. COMPARISON: None FINDINGS: Surgical changes and devices: None. Lungs and pleura: No pleural effusions or pneumothorax. Lungs are clear. Mediastinum: Mediastinal contours appear normal. Heart size is normal. Bones and chest wall: No suspicious bony lesions. Overlying soft tissues appear unremarkable. IMPRESSION: No acute cardiopulmonary findings Reviewed by: Jose De Jesus Haque MD on 12/29/2021 11:50 AM SAMUEL Approved by: Jose De Jesus Haque MD on 12/29/2021 11:50 AM SAMUEL Station ID: [id number]
[2021-12-29 12:53] VITALS: BP 119/78
== END 2021-12-29 12:53 | disposition home or self-care (01) ==
LOC: ED 09:47
DX: J06.9 Acute upper respiratory infection, unspecified (principal); Z20.822 Contact with and (suspected) exposure to COVID-19
CPT/HCPCS: 87070; 87430; 87633; 99282; 99284

== ENCOUNTER 2022-06-23 09:00 | Emergency (ER) | payer OTHER ==
--- NOTE | 2022-06-23 11:20 | ED Physician Documentation ---
History of Present Illness - Stated complaint Stated Complaint: LT HAND TINGLING/NUMB - Chief complaint Chief Complaint: Ext Problem - History obtained from History obtained from: Patient - Additonal information Additional information: Pt comes to the ED with CC of numbness/tingling that goes from her elbow through her 4th/5th digits for the past 10 days. Worse with certain positions. Worse in the morning after sleeping. Pt states she has some pain in her L shoulder and tightness in her L neck. She is worried about a stroke. No other neurologic sx now or at any other time. 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 HEENT: Chronic vision loss Psych: None Musculoskeletal: None Derm: None - Past Surgical History Past Surgical History: Yes General: Cholecystectomy (11 days ago) - Present Medications Home Medications: Ambulatory Orders Medication Instructions Recorded Confirmed predniSONE [Deltasone] 10 mg PO [id number] #42 tab 06/23/22 - Allergies Allergies/Adverse Reactions: Allergies Allergy/AdvReac Type Severity Reaction Status Date / Time No Known Drug Allergies Allergy Verified 06/23/22 09:26 - Social History Does the pt smoke?: No Smoking Status: Never smoker Does the pt drink ETOH?: No Does the pt have substance abuse?: No - Immunizations Immunizations are current?: Yes - POLST Patient has POLST: No PD ED PE NORMAL - Vitals Vital signs reviewed: Yes - General General: Alert and oriented X 3, No acute distress, Well developed/nourished - HEENT HEENT: Atraumatic, PERRL, EOMI, Moist mucous membranes - Neck Neck: Supple, no meningeal sign, No bony TTP - Cardiac Cardiac: RRR, No murmur, Strong equal pulses - Respiratory Respiratory: No respiratory distress, Clear bilaterally - Derm Derm: Normal color, Warm and dry, No rash - Extremities Extremities: No deformity, Normal ROM s pain - Neuro Neuro: Alert and oriented X 3, brim stretcher 2-12 intact, No motor deficit, No sensory deficit, Normal speech (No strength discrepancy in upper extremities.) - Psych Psych: Normal mood, Normal affect Results - Vitals Vitals: Oxygen O2 Source Room air PD Medical Decision Making - ED course Complexity details: considered differential, d/w patient ED course: I d/w pt that her sx sound radicular, and I do not find evidence of a 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 We have discussed symptomatic management at home and the need for follow-up to discuss MRI if no significant improvement in the next couple of weeks. Departure - Departure Disposition: 01 Home, Self Care Clinical Impression: Paresthesias Pinched nerve in shoulder Qualifiers: Laterality: left Qualified Code(s): G56.82 - Other specified mononeuropathies of left upper limb Condition: Stable Instructions: ED Cervical Radiculopathy, ED Paraesthesias Prescriptions: predniSONE [Deltasone] 10 mg PO [id number] #42 tab Comments: You have not had an injury and your symptoms are consistent with a nerve compression that is causing the numb and tingling sensation in your fingers. This is consistent with a compression involving your radial nerve. However, the symptoms seem to be worse with Internal rotation of your shoulder so the actual problem may be in your shoulder. Most of these kinds of things blow over on their own, and since it is only been 10 days since your symptoms started, this is unlikely to be a chronic problem. However, if your symptoms persist for more than the next couple of weeks, [place]. Your prescriptions have been electronically transmitted to the [facility] pharmacy in [place]. Please call to make the next available appointment with your primary doctor. There is no evidence of an emergent condition today. Discharge Date/Time: 06/23/22 11:29
[2022-06-23 11:29] VITALS: BP 127/80
== END 2022-06-23 11:29 | disposition home or self-care (01) ==
LOC: ED 09:18
DX: G56.82 Other specified mononeuropathies of left upper limb (principal); R20.2 Paresthesia of skin
CPT/HCPCS: 99281; 99283

== ENCOUNTER 2023-02-22 14:20 | Emergency (ER) | payer OTHER ==
[2023-02-22] MEDS ORDERED: DEXAMETHASONE 10 MG/ML VIAL PO STA (14:59)
[2023-02-22] MEDS ORDERED: CHERRY SYRUP 10 ML UDC PO ONE (14:59)
--- NOTE | 2023-02-22 15:02 | ED Physician Documentation ---
PD HPI FOCAL NEURO - Stated complaint Stated Complaint: GRECO,HANDS/ARMS NUMB - Chief complaint Chief Complaint: Neuro - History obtained from History obtained from: Patient - History of Present Illness Timing - onset: How many months ago (9) Timing - duration: Months (9) Timing - details: Gradual onset, Still present Severity of deficit: Moderate Weakness: Hand, Right Numbness: Hand, Right Associated symptoms: Headache (similar to prior) Baseline status: positive: A&OX3, ambulatory, indep Similar symptoms before: Diagnosis (radiculopathy) Recently seen: Not recently seen - Additional information Additional information: Nikkie Sales is a 37-year-old female who has a history of a radiculopathy to the upper extremities worse on the right than the left. She has been having the symptoms for 9 months and she has found that if she is working hard her symptoms will worsen. She was at her work and unable to perform her duties. She has c ome to the emergency department for evaluation after calling the nurse hotline to indicate that she was unable to come to work. The patient indicates that today she has a bit of a headache and feels dizzy and lightheaded as well. She has had work-up to include MRI of the cervical spine and peripheral nerve testing. 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 : None HEENT: Chronic vision loss Psych: None Musculoskeletal: None Derm: None - Past Surgical History Past Surgical History: Yes General: Cholecystectomy - Allergies Allergies/Adverse Reactions: Allergies Allergy/AdvReac Type Severity Reaction Status Date / Time No Known Drug Allergies Allergy Verified 02/22/23 14:24 - Social History Does the pt smoke?: No Smoking Status: Never smoker Does the pt drink ETOH?: No Does the pt have substance abuse?: No - Immunizations Immunizations are current?: Yes - POLST Patient has POLST: No PD ED PE NORMAL - Vitals Vital signs reviewed: Yes (hypertensive mild ) - General General: No acute distress, Well developed/nourished - HEENT HEENT: Atraumatic, PERRL, EOMI - Respiratory Respiratory: No respiratory distress - Derm Derm: Normal color, Warm and dry, No rash - Extremities Extremities: No deformity, No edema - Neuro Neuro: Alert and oriented X 3, rn chronic 2-12 intact, No motor deficit, Normal speech, Other (subjective numbness to the right hand ) Eye Opening: Spontaneous Motor: Obeys Commands Verbal: Oriented GCS Score: 15 - Psych Psych: Normal mood, Normal affect Results - Vitals Vitals: Vital Signs - 24 hr 02/22/23 02/22/23 14:24 15:13 Temperature 36.8 C Heart Rate 87 95 Respiratory 16 16 Rate Blood Pressure 142/83 H 119/85 H O2 Saturation 98 96 Oxygen O2 Source Room air PD Medical Decision Making - ED course Complexity details: considered differential, d/w patient ED course: 37-year-old female with a longstanding history of radiculopathy has called the nurse line today and they asked the patient to come to the emergency department to be evaluated. Her symptoms include numbness and tingling to the right arm which is worse today than yesterday and headache with lightheadedness and dizziness. The patient states that she frequently gets headache. She also states that frequently she will have an increase in her symptoms of radiculopathy when she has been working excessively hard and she describes using some large wrenches with full body force used to operate them. She does not believe she can continue to perform her work duties Departure - Departure Disposition: 01 Home, Self Care Clinical Impression: Radiculopathy Qualifiers: Spinal region: cervical Qualified Code(s): M54.12 - Radiculopathy, cervical region Condition: Stable Instructions: ED Cervical Radiculopathy Follow-Up: [facility] [Provider Group] Comments: Feet, today looks like you have an exacerbation of your chronic cervical radiculopathy. We have given you a dose of dexamethasone today and our expectations with this are some improvement in your symptoms later this afternoon. This is a chronic problem which should be addressed through your primary care doctor and my recommendation is to follow-up with your primary regarding potential treatments for cervical radiculopathy to include potential epidural steroid injection. In addition I have given you a note for work. Forms: Activity restrictions Discharge Date/Time: 02/22/23 15:13
[2023-02-22 15:19] VITALS: BP 119/85; O2SAT 96
== END 2023-02-22 15:13 | disposition home or self-care (01) ==
LOC: ED 14:20
DX: M54.12 Radiculopathy, cervical region (principal)
CPT/HCPCS: 99282; 99283; A9270

== ENCOUNTER 2023-03-03 07:50 | Emergency (ER) | payer OTHER ==
[2023-03-03] MEDS ORDERED: SODIUM CHLORIDE 0.9% 1,000 ML IV STA (07:57)
[2023-03-03] MEDS ORDERED: KETOROLAC 30 MG/ML VIAL IVP STA (08:24)
[2023-03-03] MEDS ORDERED: PROMETHAZINE INJ 12.5 MG in SODIUM CHLORIDE 0.9% 50 ML IV STA (08:24)
--- NOTE | 2023-03-03 08:28 | ED Physician Documentation ---
PD HPI HEADACHE - Stated complaint Stated Complaint: HEAD PX/DIZZY/NAUSEA - Chief complaint Chief Complaint: Neuro - History obtained from History obtained from: Patient - Additional information Additional information: The patient comes to the emergency department chief complaint of throbbing headache for the last 2 days and insomnia. The patient states that she also has some numbness on her occipital scalp that reaches around to her right yazidism and lateral face. The patient denies any head injury. No neck pain or fevers. She states that her face and head feel "sore". The patient has been having headaches on and off for the last few months and has also been dealing with some numbness of her right hand. 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 The patient denies any specific weakness. No wors ening of her right upper extremity symptoms. No visual changes or difficulty speaking or swallowing. No other neurologic symptoms at this time. The patient has had some mild nausea, but no vomiting. The patient states that she is not on any migraine medications and has never had a formal diagnosis for her headaches. She states she is concerned because 2 of her aunts had brain tumors and she is afraid she might have one, also. No other complaints at this time. 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 HEENT: Chronic vision loss Psych: Depression Musculoskeletal: None Derm: None - Past Surgical History Past Surgical History: Yes General: Cholecystectomy - Present Medications Home Medications: Ambulatory Orders Medication Instructions Recorded Confirmed FLUoxetine [PROzac] 10 mg PO DAILY 03/03/23 03/03/23 - Allergies Allergies/Adverse Reactions: Allergies Allergy/AdvReac Type Severity Reaction Status Date / Time No Known Drug Allergies Allergy Verified 03/03/23 08:01 - Social History Does the pt smoke?: No Smoking Status: Never smoker Does the pt drink ETOH?: Yes Does the pt have substance abuse?: No - Immunizations Immunizations are current?: Yes - POLST Patient has POLST: No PD ED PE NORMAL - Vitals Vital signs reviewed: Yes - General General: Alert and oriented X 3, No acute distress, Well developed/nourished - HEENT HEENT: Atraumatic, PERRL, EOMI, Moist mucous membranes - Neck Neck: Supple, no meningeal sign - Cardiac Cardiac: RRR, No murmur - Respiratory Respiratory: No respiratory distress, Clear bilaterally - Abdomen Abdomen: Soft, Non tender, Non distended - Derm Derm: Warm and dry - Extremities Extremities: No deformity - Neuro Neuro: Alert and oriented X 3 - Psych Psych: Normal mood, Normal affect Results - Vitals Vitals: Oxygen O2 Source Room air - Labs Labs: Laboratory Tests 03/03/23 08:08 Serum HCG, Qual NEGATIVE - Rads (name of study) head CT Relevant Findings:: Final report received, See rad report (neg) PD Medical Decision Making - ED course Complexity details: reviewed results, re-evaluated patient, considered differential, d/w patient ED course: The patient was treated symptomatically in the emergency department with IV fluids, Toradol, and Phenergan. I discussed with her that although I do not feel it is likely that there is serious intracranial pathology causing her symptoms, given the history of Brain tumors in the family and the patient's concern, we will go ahead and image her brain with CT to screen for anything intracranially as far space-occupying lesion. The CT was negative. I have discussed the need for follow-up with the pt, and the usual indications for return. Departure - Departure Disposition: 01 Home, Self Care Clinical Impression: Headache Qualifiers: Headache type: unspecified Headache chronicity pattern: acute headache Intractability: not intractable Qualified Code(s): R51.9 - Headache, unspecified Condition: Stable Instructions: ED Headache Tension, ED Headache Migraine Comments: Your symptoms are most consistent with a combination of tension and migraine headaches. Your CT scan is negative. There is no evidence of any brain tumor, bleeding in the brain, or any other emergent or serious condition causing your headache. It is important that you continue to follow-up with your doctor to determine the best treatment for your headaches. Please call and make an appointment when you get home. Forms: PCP List, Activity restrictions Discharge Date/Time: 03/03/23 09:53
[2023-03-03 08:56] LABS: HCG,QUALITATIVE BLOOD NEGATIVE
--- NOTE | 2023-03-03 09:30 | CT Report ---
PROCEDURE: HEAD WO INDICATIONS: worsening headaches, FH brain tumors TECHNIQUE: Noncontrast 4.5 mm thick angled axial sections acquired from the foramen magnum to the vertex. For r adiation dose reduction, the following was used: automated exposure control, adjustment of mA and/or kV according to patient size. COMPARISON: None. FINDINGS: Image quality: Excellent. CSF spaces: Basal cisterns are patent. No extra-axial fluid collections. Ventricles are normal in size and shape. Brain: No midline shift. No intracranial masses or hemorrhage. [place]-white matter interface is norm al. Skull and face: Calvarium and visualized facial bones are intact, without suspicious lesions. Sinuses: Visualized sinuses and mastoids are clear. IMPRESSION: No acute intracranial pathology. Reviewed by: Johnathon Giron on 03/03/2023 9:29 AM [facility] Approved by: Johnathon Giron on 03/03/2023 9:29 AM [facility] Station ID: [id number]
[2023-03-03 09:55] VITALS: BP 112/86; O2SAT 98
== END 2023-03-03 09:53 | disposition home or self-care (01) ==
LOC: ED 07:50
DX: R51.9 Headache, unspecified (principal)
CPT/HCPCS: 36415; 70450; 84703; 96365; 96375; 99283; 99284; J7040

== ENCOUNTER 2023-04-15 08:12 | Outpatient (CLI) | payer OTHER ==
[2023-04-15 08:44] VITALS: BP 128/82; O2SAT 97
--- NOTE | 2023-04-15 08:56 | Sleep Patient Instructions ---
Sleep Center Visit Summary - Patient Visit Information Reason for Visit: Initial consult for evaluation of sleep disordered breathing and other sleep issues. - Patient Instructions Instructions Attached: Sleep Study Home Monitor Additional Instructions: You will be completing a sleep study, either an in-lab polysomnography (PSG) or home sleep study (HST). You will follow-up in the sleep care office after the sleep study is completed to hear the results and talk about therapy, if needed. You will be called by our office staff to schedule this appointment, but you may contact us with any questions. - Clinic Information Contact: Located within [facility] [address] [place] [address] [email or web address] T: [phone]
--- NOTE | 2023-04-15 08:58 | SLEEP CARE CONSULTATION ---
History of Present Illness Service Date and Time: 04/15/2023 0812 Reason for Visit: New patient Chief Complaint: reports: Insomnia, Unrefreshed sleep, Snoring, Observed pauses in breathing, Frequent awakenings at night Date of Onset: Over a year Usual bedtime: unsure; 11-12 midnight laying down right now Time it takes to fall asleep: around 2 hours Snores at night: Yes Observed to quit breathing while asleep: Yes Sleeps alone due to snoring: No Number of times waking at night: 3-4 times Reasons for waking at night: reports: Choking (sometimes), Snoring, Pain, Bathroom, Other (unknown reason). denies: Gasping for air Toss, Turn, or Twitch while sleeping: Yes Recalls having dreams: Yes Usually gets out of bed at: 5 AM or 10 AM or 12 AM Feels refreshed in the morning: No Morning headache: Yes (almost every day; sometimes gone in afternoon or next day) Sleepy or fatigued during the day: Yes Ever fallen asleep while driving: Yes (drowsy driving, no accidents) Takes day naps: Yes (2-3 times a week; tries to keep to 10 minutes) Dreams during day naps: Yes Prior sleep studies: No Additional HPI information: I had the pleasure of seeing LISS BLEVINS today regarding the possibility of her having a sleep disorder. Her current complaints are frequent night awakenings, insomnia, observed pauses in breathing, snoring and unrefreshed sleep. Her has told her that she snores and will sometimes see her stop breathing. He will wake her up to see that she is okay. She states she is always tired. She has problems with anxiety and depression and gets upset easily. She has different schedules for work and it makes it hard to go to sleep sometimes. She has used melatonin in the past but it does not always work to help her sleep. She says she wakes up with headaches nearly every day and sometimes they do not resolve until the next day. She has been to the ED and has had some imaging but every thing looked normal. - Parasomnia Symptoms Ever been unable to move upon waking from sleep: Yes (not that she cannot move at all) Walks in sleep: No Talks in sleep: Yes Ever acted out dreams in sleep: No Ever felt weak in the knees when startled or emotional: Yes (has not fallen down) Bothered by creepy, crawly, restless sensations in legs: Yes (numbness in right leg ) Problems with memory or concentration: Yes (both) Subjective Initial Bayard Sleepiness Scale score: 18 (04/14/2023) Past Medical History Past Medical History: reports: Claustrophobia, Anxiety, Depression, Mood disorder, Attention deficit Social History 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 Patient is and lives in [place]. Have you smoked in the past 12 months: Yes Cigarettes per day (20/pack): 20 (for 2 months) Alcohol use: Yes Alcohol amount and frequency: 1/2 bottle of wine, 2 or 3 times a week Caffeine use: Yes Caffeine amount and frequency: 1 drink every day Family History Family history of sleep disordered breathing: Yes Family Hx Sleep Apnea: Mother: Snoring, Sleep apnea - Untreated, Father: Snoring, Sleep apnea - Untreated Allergies and Home Medications Known drug allergies: No Drug allergies reviewed: Yes Home medication list reviewed: Yes Allergy and home medication list: Allergies No Known Drug Allergies Allergy (Verified 04/13/23 08:25) No daily medications Review of Systems Weight gain over past 5 years: 10+ Cardiovascular: reports: chest pain Respiratory: reports: shortness of breath, sputum production Gastrointestinal: reports: nausea, vomitting, diarrhea, abdominal pain Urinary: reports: frequency Neurological: reports: headaches, disorientation Psychiatric: reports: anxiety, depression, mood disorder, claustrophobia Ear/Nose/Throat: reports: nasal congestion, dry mouth/throat, hoarseness, wisdom teeth removed. denies: tonsillectomy Endocrine: reports: sluggishness, too hot or cold, excessive thirst, increased appetite, increased urination, unexplained weakness Musculoskeletal: reports: neck pain, back pain Immunologic: reports: sneezing, rash, itching, allergies to food or environment Physical Exam Vital signs obtained and entered by: Marcela Baker NP Blood Pressure: 128/82 (left arm) Cuff size: regular Heart Rate: 76 O2 Saturation: 97 Height: 5 ft 2 in Weight: 175 lb 9.6 oz Body Mass Index: 32.1 BMI Classification: Obese Neck circumference: 15 (inches) Mouth and throat: narrow oropharynx Soft palate: long Hard palate: normal Uvula: normal Uvula visualization: 25% Mallampati Class III Tongue: enlarged in size with teeth moody on lateral edges Tonsils: 1+ Neck: normal w/o lymphadenopathy or thyromegaly Heart: regular rate and rhythm Lungs: clear bilaterally Impression and Plan 1. Suspected Obstructive Sleep Apnea-Hypopnea Syndrome, as suggested by a history of loud and irregular snoring, observed cessation of breath while asleep, gasping or choking in sleep, morning headache, frequent awakening during the night, unrefreshed sleep, cognitive impairment, and excessive daytime sleepiness. Narrow oropharynx and obesity are common predisposing factors for obstructive sleep apnea-hypopnea syndrome. I recommend proceeding to polysomnography to confirm the diagnosis and to assess severity. If the patient has significant sleep disordered breathing, a manual CPAP titration study will also be performed to find the optimal treatment pressure. I informed the patient of what the sleep studies involve and after some discussion, obtained agreement to proceed. The pathophysiology of obstructive sleep apnea-hypopnea syndrome was discussed with the patient and health risks of cardiovascular and cerebrovascular disease if not treated. 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 Patient agreed to plan. * Schedule polysomnography. * Avoid long distance driving or driving when feeling sleepy. * Avoid alcohol, sedative and muscle relaxant around bedtime. * Attempt to lose weight. * Review instructions provided by trained office staff on how to prepare for the sleep study. * Return for follow-up after sleep study completed. Counseling Topics: Weight loss health impact Plan: PSG/HST Visit Type: In Office Time Spent with Patient (minutes): 34 Provider Statement: I spent 100% of the Face to Face Visit with the patient with greater than 50% spent counseling the patient and coordination of care.
== END 2023-04-15 08:13 | disposition home or self-care (01) ==
LOC: SC 08:12
PROVIDERS: ATTEND Nurse Practitioner Family
DX: R06.83 Snoring (principal); G47.8 Other sleep disorders; R06.81 Apnea, not elsewhere classified; R51.9 Headache, unspecified; G47.10 Hypersomnia, unspecified; R53.83 Other fatigue; F32.A Depression, unspecified; R41.89 Other symptoms and signs involving cognitive functions and awareness; E66.9 Obesity, unspecified; Z68.32 Body mass index [BMI] 32.0-32.9, adult; F17.210 Nicotine dependence, cigarettes, uncomplicated
CPT/HCPCS: 99203; 99212

== ENCOUNTER 2023-05-10 13:11 | Emergency (ER) | payer OTHER ==
[2023-05-10 13:39] LABS: RAPID STREP SCREEN Negative (Negative)
[2023-05-10 14:18] LABS: B. PARAPERTUSSIS- RESP PCR PAN NOT DETECTED; B. PERTUSSIS- RESP PCR PANEL NOT DETECTED; C. PNEUMONIAE- RESP PCR PANEL NOT DETECTED; CORONAVIRUS 229E-RESP PCR NOT DETECTED; CORONAVIRUS HKU1-RESP PCR NOT DETECTED; CORONAVIRUS NL63-RESP PCR NOT DETECTED; CORONAVIRUS OC43-RESP PCR NOT DETECTED; HUMAN METAPNEUMOVIRUS NOT DETECTED; INFLUENZA A- RESP PCR PANEL NOT DETECTED; INFLUENZA B - RESP PCR PANEL NOT DETECTED; M. PNEUMONIAE- RESP PCR PANEL NOT DETECTED; PARAINFLUENZA VIRUS 1 NOT DETECTED; PARAINFLUENZA VIRUS 2 NOT DETECTED; PARAINFLUENZA VIRUS 3 NOT DETECTED; PARAINFLUENZA VIRUS 4 NOT DETECTED; RHINOVIRUS/ENTEROVIRUS NOT DETECTED; RSV- RESP PCR PANEL NOT DETECTED; SARS-CoV-2 -RESP PCR PANEL NOT DETECTED
--- NOTE | 2023-05-10 14:53 | ED Physician Documentation ---
PD HPI URI - Stated complaint Stated Complaint: SORE THROAT,SOA,DIZZINESS - Chief complaint Chief Complaint: General - History obtained from History obtained from: Patient - History of Present Illness Pain level max: 4 Pain level now: 3 Associated symptoms: Chills, Nasal congestion, Rhinorrhea. No: Fever - Additional information Additional information: 38-year-old female presents to the emergency department with a cough and congestion for 3 days. No fevers but has had chills. The cough is mostly dry, occasionally productive. She states she also has a mild sore throat. Has not taken anything for her symptoms. She states that she was at work today and felt slightly lightheaded, so came to the emergency department. Denies any possibility of . Does not smoke or vape. No history of lung disease. Does not take any medications at home. 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 HEENT: Chronic vision loss Psych: Depression Musculoskeletal: None Derm: None - Past Surgical History Past Surgical History: Yes General: Cholecystectomy - Present Medications Home Medications: Ambulatory Orders Medication Instructions Recorded Confirmed FLUoxetine [PROzac] 10 mg PO DAILY 03/03/23 03/03/23 Benzonatate [Tessalon] 200 mg PO TID PRN #30 cap 05/10/23 Cetirizine HCl/Pseudoephedrine 1 tab PO BID PRN #20 tab 05/10/23 [Zyrtec-D ER 5 mg-120 mg Tablet] - Allergies Allergies/Adverse Reactions: Allergies Allergy/AdvReac Type Severity Reaction Status Date / Time No Known Drug Allergies Allergy Verified 05/10/23 13:17 - Social History Does the pt smoke?: No Smoking Status: Never smoker Does the pt drink ETOH?: Yes Does the pt have substance abuse?: No - Immunizations Immunizations are current?: Yes - POLST Patient has POLST: No PD ED PE NORMAL - Vitals Vital signs reviewed: Yes - General General: Alert and oriented X 3, No acute distress - HEENT HEENT: PERRL, Ears normal, Moist mucous membranes, Pharynx benign - Neck Neck: Supple, no meningeal sign - Cardiac Cardiac: RRR, Strong equal pulses - Respiratory Respiratory: No respiratory distress, Clear bilaterally - Abdomen Abdomen: Soft, Non tender, Non distended - Derm Derm: Warm and dry - Neuro Neuro: Alert and oriented X 3 - Psych Psych: Normal mood, Normal affect Results - Vitals Vitals: Vital Signs - 24 hr 05/10/23 13:17 Temperature 36.8 C Heart Rate 100 Respiratory 16 Rate Blood Pressure 132/80 H O2 Saturation 98 Oxygen O2 Source Room air - Labs Labs: Laboratory Tests 05/10/23 05/10/23 13:22 13:22 Nasal Adenovirus (PCR) NOT DETECTED Nasal B. parapertussis DNA (PCR) NOT DETECTED Nasal Coronavir 229E PCR NOT DETECTED Nasal Coronavir HKU1 PCR NOT DETECTED Nasal Coronavir NL63 PCR NOT DETECTED Nasal Coronavir OC43 PCR NOT DETECTED Nasal Enterovir/Rhinovir PCR NOT DETECTED Nasal Influenza B PCR NOT DETECTED Nasal Influenza A PCR NOT DETECTED Nasal Parainfluen 1 PCR NOT DETECTED Nasal Parainfluen 2 PCR NOT DETECTED Nasal Parainfluen 3 PCR NOT DETECTED Nasal Parainfluen 4 PCR NOT DETECTED Nasal RSV (PCR) NOT DETECTED Nasal B.pertussis DNA PCR NOT DETECTED Nasal C.pneumoniae (PCR) NOT DETECTED Shamar Human Metapneumo PCR NOT DETECTED Nasal M.pneumoniae (PCR) NOT DETECTED Nasal SARS-CoV-2 (PCR) NOT DETECTED Group A Strep Rapid Negative PD Medical Decision Making - ED course Complexity details: reviewed results, re-evaluated patient, considered differential, d/w patient ED course: No acute findings on respiratory PCR. Rapid strep is negative. Patient is very well-appearing, nontoxic. No hypoxia. No respiratory distress. Lungs are clear to auscultation bilaterally. Appears to have a viral upper respiratory infection. No evidence of hypoxia, pneumonia or sepsis. We will continue supportive care and have her follow-up with her doctor for further care. Normal phonation. No trismus. No peritonsillar or retropharyngeal abscess. Patient counseled regarding signs and symptoms for which I believe and urgent re- evaluation would be necessary. Patient with good understanding of and agreement to plan and is comfortable going home at this time This document was made in part using voice recognition software. While efforts are made to proofread this document, sound alike and grammatical errors may occur. Departure - Departure Disposition: 01 Home, Self Care Clinical Impression: Viral URI with cough Condition: Good Instructions: ED URI Viral Follow-Up: your,doctor as needed [Other] Prescriptions: Benzonatate [Tessalon] 200 mg PO TID PRN #30 cap PRN Reason: Cough Cetirizine HCl/Pseudoephedrine [Zyrtec-D ER 5 mg-120 mg Tablet] 1 tab PO BID PRN #20 tab PRN Reason: nasal congestion Comments: Your testing for COVID, influenza and other viruses is negative. Your strep test is negative. [facility] [place]. Please make sure you are drinking plenty of fluids at home. Please return if you worsen. Forms: PCP List, Activity restrictions
[2023-05-10 15:02] VITALS: BP 131/78; O2SAT 99
== END 2023-05-10 14:57 | disposition home or self-care (01) ==
LOC: ED 13:11
DX: J06.9 Acute upper respiratory infection, unspecified (principal); Z11.52 Encounter for screening for COVID-19
CPT/HCPCS: 87070; 87430; 87633; 99283

== ENCOUNTER 2023-06-11 09:24 | Outpatient (CLI) | payer OTHER | END 2023-06-11 09:25 | disposition home or self-care (01) | LOC: SC 09:24 | PROVIDERS: ATTEND Nurse Practitioner Family | DX: G47.33 Obstructive sleep apnea (adult) (pediatric) (principal); R09.02 Hypoxemia; E66.9 Obesity, unspecified; Z68.32 Body mass index [BMI] 32.0-32.9, adult | CPT/HCPCS: 95806 ==

== ENCOUNTER 2023-06-29 13:47 | Outpatient (CLI) | payer OTHER ==
--- NOTE | 2023-06-29 14:09 | Sleep Patient Instructions ---
Sleep Center Visit Summary - Patient Visit Information Reason for Visit: Sleep study follow-up - Patient Instructions Additional Instructions: You will be completing a titration sleep study in our sleep lab where you will be sleeping with the CPAP machine on and we will be adjusting your pressures to find your optimal pressure settings. Once we have your results back, we will call you and schedule a follow up to go over the results. But, you may contact us with any questions or issues as needed. - Clinic Information Contact: [facility] [address] [place] [id number] [email or web address] T: [phone]
--- NOTE | 2023-06-29 14:11 | SLEEP CARE CONSULTATION ---
Information from patient questionnaire entered by Teresa Bardales. I have reviewed and concur with the information entered by Treesa Bardales. This document represents the service I personally performed and the decisions made by , Marcela Snowden ARNP. History of Present Illness Service Date and Time: 06/29/2023 1347 Initial Dierks Sleepiness Scale score: 18 (04/14/2023) Current Dierks Sleepiness Scale score: 17 (06/29/23) Additional HPI information: LISS BLEVNIS returns for follow up and results of the recently performed home sleep study. The sleep study showed moderate obstructive sleep apnea with an average AHI of 29.1 and yumi oxygen saturation of 75%. I explained the pathophysiology behind obstructive sleep apnea. We then spent quite a bit of time discussing different treatment options. For mild obstructive sleep apnea, surgery and oral appliance are alternatives to nasal CPAP therapy but in moderate or severe cases, nasal CPAP is the most effective and reliable treatment. I reviewed the impact of weight changes on sleep apnea and strongly recommended losing weight. After some discussion, the patient opted to go with the nasal CPAP therapy. A manual titration study will be ordered to find optimal pressure with office adjustments. I explained how CPAP machine works and what to expect when using the machine. Using CPAP every night in order to get used to it was emphasized. Patient counseled not drink alcohol less than 4 hours before bedtime as it can increase snoring and apnea. Patient was cautioned about risks of drowsy driving until sleepiness symptoms resolve. Patient denies drowsy driving. Sleep Study - Results Type of Sleep Study: Home sleep study (COMPLETED 06/11/23) Prior sleep studies: No Polysomnography/Home Sleep Study results: Physician Impression: The quality of the study is good. The length of the study is adequate (> 240 minutes). Please also see the tabulated and graphic data. 1. Obstructive Sleep Apnea-Hypopnea (ICD-10 G47.33), moderate, with an AHI of 29.1/hr and yumi SaO2 of 75%. During the study, the patient had 143 apneas (143 obstructive, 0 central, 0 mixed) and 72 hypopneas. The longest episode lasted 85.0 seconds. The respiratory events occurred independently of sleep stage and body position (supine AHI was 25.2 and non-supine, 45.82). 2. Hypoxemia (ICD-10 R09.02), moderate, with the lowest oxygen saturation of 75 % and 22.7 minutes with SaO2 under 90%. Baseline oxygen saturation was normal (Average oxygen saturation was 94%). Allergies and Home Medications Known drug allergies: No Drug allergies reviewed: Yes Home medication list reviewed: Yes (no changes) Allergy and home medication list: Allergies No Known Drug Allergies Allergy (Verified 05/10/23 13:17) Review of Systems Review of systems same as previous: Yes (NO CHANGE) Physical Exam Vital signs obtained and entered by: TERESA Marsh MA Blood Pressure: 119/81 (LEFT ARM) Cuff size: regular Heart Rate: 76 O2 Saturation: 98 Height: 5 ft 2 in Weight: 175 lb 3.2 oz Body Mass Index: 32.0 BMI Classification: Obese Impression and Plan 1. Obstructive Sleep Apnea-Hypopnea Syndrome, moderate, with lowest oxygen saturation of 75%. Obviously this is the cause of the patients symptoms of unrefreshed sleep, and excessive daytime sleepiness. Positive pressure therapy could benefit anxiety, depression, mood disorder and attention deficit. As mentioned above, the patient will be started on nasal autoCPAP therapy. A manual titration study will be completed to find optimal treatment pressure with office adjustments. Compliance guidelines also reviewed. A copy of compliance guidelines will be given for reference at check out. 2. Hypoxemia, moderate, with a yumi oxygen saturation of 75% and 22.7 minutes spent under 90%. The baseline oxygen saturation was normal with an average oxygen saturation of 94%. 3. Obesity, unspecified. Currently patients BMI is 32. Obesity increases the risk of apnea, CPAP pressure requirements and overall health risks especially cardiovascular and diabetes. Thus patient is advised to lose weight. * Titration study * Attempt to lose weight. * Avoid alcohol consumption near bedtime. * Avoid non-supine sleep until using CPAP and elevated head to reduce apneas * The patient is again cautioned about driving until sleepiness completely resolves. * Return after titration study. Counseling Topics: Weight loss health impact Follow up with Sleep Care in: other (for results of titration study) Plan: titration study Visit Type: In Office Time Spent with Patient (minutes): 20 Provider Statement: I spent 100% of the Face to Face Visit with the patient with greater than 50% spent counseling the patient and coordination of care.
[2023-06-29 14:23] VITALS: BP 119/81; O2SAT 98
== END 2023-06-29 13:48 | disposition home or self-care (01) ==
LOC: SC 13:47
PROVIDERS: ATTEND Nurse Practitioner Family
DX: G47.33 Obstructive sleep apnea (adult) (pediatric) (principal); R09.02 Hypoxemia; E66.9 Obesity, unspecified; Z68.32 Body mass index [BMI] 32.0-32.9, adult
CPT/HCPCS: 99212; 99213

== ENCOUNTER 2023-07-05 11:21 | Outpatient (CLI) | payer OTHER | END 2023-07-05 23:59 | disposition critical access hospital (66) | LOC: EMS 11:21 | DX: R19.7 Diarrhea, unspecified (principal); R11.2 Nausea with vomiting, unspecified; R10.32 Left lower quadrant pain | CPT/HCPCS: A0425; A0427 ==

== ENCOUNTER 2023-07-05 11:24 | Emergency (ER) | payer OTHER ==
--- NOTE | 2023-07-05 11:42 | ED Physician Documentation ---
PD HPI NVD - Stated complaint Stated Complaint: N/V/D - Chief complaint Chief Complaint: Abd Pain - History obtained from History obtained from: Patient, EMS - History of Present Illness Timing - onset: Today Timing - duration: Hours (3) Timing - details: Gradual onset Pain level max: 4 Pain level now: 4 Associated symptoms: No: Fever Contributing factors: No: Sick contact, Bad food, Travel, Recent antibiotics, Alcohol use, Anticoagulated, Diabetes - Additonal information Additional information: Patient is a 38-year-old female presents to the emergency department with crampy abdominal pain. States that she usually has diarrhea since having her gallbladder out but had diarrhea twice today instead of her usual once. She states she was nauseated and felt like she was going to vomit but did not. No fevers. Did have chills. States she is still having cramping in her abdomen. No vaginal bleeding or discharge. No dysuria. No urinary frequency. No recent antibiotics, no recent travel, no sick contacts. No alcohol use. No diabetes. Nothing makes it better or worse. Patient states that she is on control and denies any possibility of . 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 : None HEENT: Chronic vision loss Psych: Depression Musculoskeletal: None Derm: None - Past Surgical History Past Surgical History: Yes General: Cholecystectomy - Present Medications Home Medications: Ambulatory Orders Medication Instructions Recorded Confirmed Dicyclomine [Bentyl] 10 mg PO QID PRN #30 cap 07/05/23 Ondansetron Odt [Zofran] 4 mg TL Q6H PRN #10 tablet 07/05/23 - Allergies Allergies/Adverse Reactions: Allergies Allergy/AdvReac Type Severity Reaction Status Date / Time No Known Drug Allergies Allergy Verified 07/05/23 11:34 - Social History Does the pt smoke?: No Smoking Status: Never smoker Does the pt drink ETOH?: Yes Does the pt have substance abuse?: No - Immunizations Immunizations are current?: Yes - POLST Patient has POLST: No PD ED PE NORMAL - Vitals Vital signs reviewed: Yes - General General: Alert and oriented X 3, No acute distress - HEENT HEENT: Moist mucous membranes - Neck Neck: Supple, no meningeal sign - Cardiac Cardiac: RRR, Strong equal pulses - Respiratory Respiratory: No respiratory distress, Clear bilaterally - Abdomen Abdomen: Soft, Non tender, Non distended - Back Back: No CVA TTP, No spinal TTP - Derm Derm: Warm and dry, No rash - Extremities Extremities: No edema, No calf tenderness / cord - Neuro Neuro: Alert and oriented X 3 - Psych Psych: Normal mood, Normal affect Results - Vitals Vitals: Vital Signs - 24 hr 07/05/23 07/05/23 11:31 13:05 Temperature 36.7 C Heart Rate 98 78 Respiratory 16 16 Rate Blood Pressure 118/88 H 111/87 H O2 Saturation 96 100 Oxygen O2 Source Room air - Labs Labs: Laboratory Tests 07/05/23 07/05/23 07/05/23 11:49 11:49 12:55 WBC 11.5 H RBC 4.87 Hgb 14.1 Hct 44.9 MCV 92.2 MCH 29.0 MCHC 31.4 L RDW 11.9 L Plt Count 248 MPV 9.2 Neut # (Auto) 9.6 H Lymph # (Auto) 1.1 L [place] # (Auto) 0.6 Eos # (Auto) 0.1 Baso # (Auto) 0.0 Absolute Nucleated RBC 0.00 Nucleated RBC % 0.0 Sodium 136 Potassium 4.1 Chloride 107 Carbon Dioxide 22 Anion Gap 7.0 BUN 22 H Creatinine 0.8 Estimated GFR (MDRD) 81 L Glucose 110 H Calcium 10.0 Total Bilirubin 0.5 AST 19 ALT 23 Alkaline Phosphatase 59 Total Protein 7.9 Albumin 4.8 Globulin 3.1 Albumin/Globulin Ratio 1.5 Lipase 29 Urine Color DARK YELLOW Urine Clarity CLEAR Urine pH 5.5 Ur Specific [place] >=1.030 H Urine Protein TRACE Urine Glucose (UA) NEGATIVE Urine Ketones NEGATIVE Urine Occult Blood MODERATE H Urine Nitrite NEGATIVE Urine Bilirubin NEGATIVE Urine Urobilinogen 0.2 (NORMAL) Ur Leukocyte Esterase TRACE H Urine RBC 0-5 Urine WBC 6-10 H Urine WBC Clumps PRESENT Ur Squamous Epith Cells FEW Squamous Urine Bacteria Few Ur Microscopic Review INDICATED Urine Culture Comments INDICATED Urine HCG, Qual NEGATIVE PD Medical Decision Making - ED course Complexity details: reviewed results, re-evaluated patient, considered differential, d/w patient ED course: Patient is well-appearing, nontoxic. Afebrile. Tolerating p.o. without difficulty here. Abdominal pain resolved with Levsin. No significant lab abnormalities. Likely viral gastroenteritis. No indication for CT scan. Abdomen is soft, nontender nondistended on serial examination. Patient does not have any urinary symptoms, suspect urinalysis is contaminated, we will await culture results to determine need for antibiotic therapy. No fevers. No back pain. Patient counseled regarding signs and symptoms for which I believe and urgent re-evaluation would be necessary. Patient with good understanding of and agreement to plan and is comfortable going home at this time This document was made in part using voice recognition software. While efforts are made to proofread this document, sound alike and grammatical errors may occur. Departure - Departure Disposition: 01 Home, Self Care Clinical Impression: Viral gastroenteritis Condition: Good Instructions: ED Gastroenteritis Viral Follow-Up: your,doctor in 1 week [Other] Prescriptions: Dicyclomine [Bentyl] 10 mg PO QID PRN #30 cap PRN Reason: Abdominal Pain Ondansetron Odt [Zofran] 4 mg TL Q6H PRN #10 tablet PRN Reason: Nausea / Vomiting Comments: Your prescriptions were sent to [facility] in [place]. You can use the Zofran as needed for any nausea and vomiting. The Bentyl will help with cramping. Make sure you are drinking plenty of fluids. Return if you worsen. Forms: PCP List, Activity restrictions Discharge Date/Time: 07/05/23 13:05
[2023-07-05 11:55] LABS: BASOPHILS % (AUTO) 0.3 %; EOSINOPHILS # (AUTO) 0.1 10^3/uL (0.0-0.7); EOSINOPHILS % (AUTO) 1.2 %; HCT - HEMATOCRIT 44.9 % (37.0-47.0); HGB - HEMOGLOBIN 14.1 g/dL (12.0-16.0); LYMPHOCYTES # (AUTO) 1.1 10^3/uL (1.5-3.5); LYMPHOCYTES % (AUTO) 9.7 %; MEAN CORPUSCULAR HGB CONC 31.4 g/dL (32.0-36.0); MEAN CORPUSCULAR VOLUME 92.2 fL (81.0-99.0); MEAN PLATELET VOLUME 9.2 fL (7.9-10.8); MONOCYTES # (AUTO) 0.6 10^3/uL (0.0-1.0); MONOCYTES % (AUTO) 4.9 %; NEUTROPHILS # (AUTO) 9.6 10^3/uL (1.5-6.6); NEUTROPHILS % (AUTO) 83.3 %; PLT - PLATELET COUNT 248 10^3/uL (130-450); RED BLOOD COUNT 4.87 10^6/uL (4.20-5.40); RED CELL DISTRIBUTION WIDTH 11.9 % (12.0-15.0); WHITE BLOOD COUNT 11.5 x10^3/uL (4.8-10.8)
[2023-07-05] MEDS: SODIUM CHLORIDE 0.9% 1,000 ML IV STA (11:59)
[2023-07-05 12:12] LABS: ALBUMIN 4.8 g/dL (3.2-5.5); ALBUMIN/GLOBULIN RATIO 1.5 (1.0-2.2); BILIRUBIN,TOTAL 0.5 mg/dL (0.2-1.0); CREATININE 0.8 mg/dL (0.6-1.3); POTASSIUM 4.1 mmol/L (3.5-4.5); TOTAL PROTEIN 7.9 g/dL (6.4-8.9)
[2023-07-05] MEDS: HYOSCYAMINE SL 0.125 MG TABLET SL STA (12:25)
[2023-07-05 13:07] LABS: BILIRUBIN,URINE NEGATIVE (NEGATIVE); GLUCOSE, URINE (UA) NEGATIVE (NEGATIVE); KETONES,URINE (UA) NEGATIVE (NEGATIVE); LEUKOCYTE ESTERASE, URINE TRACE (NEGATIVE); NITRITE,URINE NEGATIVE (NEGATIVE); OCCULT BLOOD,URINE MODERATE (NEGATIVE); PH,URINE 5.5 PH (5.0-7.5); PROTEIN,URINE TRACE mg/dL (NEGATIVE); UROBILINOGEN,URINE 0.2 (NORMAL) E.U./dL (NORMAL)
[2023-07-05 13:08] LABS: CLARITY,URINE CLEAR (CLEAR)
[2023-07-05 13:09] LABS: HCG UR QUAL NEGATIVE
[2023-07-05 13:13] VITALS: BP 111/87; O2SAT 100
[2023-07-05 13:17] LABS: BACTERIA,URINE Few /HPF (None Seen); RBC,URINE 0-5 /HPF (0-5); SQUAMOUS EPITHELIAL CELL,UR FEW Squamous (<= Few); WBC CLUMPS,URINE PRESENT
== END 2023-07-05 13:05 | disposition home or self-care (01) ==
LOC: EDUNIT# → ED 11:24
DX: A08.4 Viral intestinal infection, unspecified (principal)
CPT/HCPCS: 36415; 80053; 81001; 81025; 83690; 85025; 87086; 99283; 99284; A9270; 81003

== ENCOUNTER 2023-07-14 12:48 | Outpatient (CLI) | payer OTHER ==
--- NOTE | 2023-07-14 15:29 | MRI Report ---
PROCEDURE: Brain WO INDICATIONS: HEADACHE TECHNIQUE: Noncontrast axial T1 spin echo, axial T2 fast spin echo, sagittal and axial FLAIR, coronal T2 fast sp in echo, axial gradient echo, axial diffusion and ADC through the brain. COMPARISON: 03/03/2023 FINDINGS: Image quality: Excellent. CSF Spaces: Basal cisterns are patent. No extra-axial fluid collections. Ventricles are normal in size and shape. Brain: No intracranial masses or hemorrhage. [place]/white matter interface is normal. Brainstem appe ars normal. Diffusion-weighted images demonstrate no acute ischemic insult. No chronic ischemic ins ults. Normal intravascular flow voids are present. Skull and face: Calvarium has normal marrow signal. Orbits appear normal. Sinuses: Sinuses and mastoids are clear. IMPRESSION: No cause for patient's symptoms is identified. No acute intracranial abnormalities. Reviewed by: Koby Daley MD on 07/14/2023 3:27 PM PDT Approved by: Koby Daley MD on 07/14/2023 3:27 PM PDT Station ID: [id number]
== END 2023-07-14 12:49 | disposition home or self-care (01) ==
LOC: DI 12:48
PROVIDERS: ATTEND Preventive Medicine Aerospace Medicine
DX: R51.9 Headache, unspecified (principal)

== ENCOUNTER 2023-08-09 19:33 | Outpatient (CLI) | payer OTHER | END 2023-08-09 19:34 | disposition home or self-care (01) | LOC: SC 19:33 | PROVIDERS: ATTEND Nurse Practitioner Family | DX: G47.33 Obstructive sleep apnea (adult) (pediatric) (principal) | CPT/HCPCS: 95811 ==

== ENCOUNTER 2023-09-02 09:48 | Outpatient (CLI) | payer OTHER ==
--- NOTE | 2023-09-02 10:18 | Sleep Patient Instructions ---
Sleep Center Visit Summary - Patient Visit Information Reason for Visit: Titration study follow-up - Patient Instructions Instructions Attached: CPAP Additional Instructions: You are being started on CPAP therapy with pressure setting at 7 cmH2O. You will need to call the sleep care office to set up your follow up once you have your CPAP machine to check compliance and response to therapy at that time. You may call the office with any concerns about pressure feeling too low or too much for adjustment, if needed. You should contact DME supplier for any questions or concerns about mask or equipment. Please call office to schedule a follow up appointment in the sleep care office one month after obtaining new device. - Clinic Information Contact: Merged with [facility] [address] [place] [address] [email or web address] T: [phone]
--- NOTE | 2023-09-02 10:20 | SLEEP CARE CONSULTATION ---
Information from patient questionnaire entered by Carmina Bardlaes. I have reviewed and concur with the information entered by Carmina Bardales. This document represents the service I personally performed and the decisions made by , Marcela Snowden ARNP. History of Present Illness Service Date and Time: 09/02/2023 0948 Initial Jackson Sleepiness Scale score: 18 (04/14/2023) Current Jackson Sleepiness Scale score: 19 (09/02/23) Additional HPI information: LISS BLEVINS returns for follow up of a manual CPAP titration study performed on 08/09/23. Previous study done on 06/11/23 showed moderate obstructive sleep apnea with AHI 29.1. The patient was informed of the following polysomnography findings: CPAP was initiated at 5 cmH2O and titrated up to CPAP at 8 cmH2O. CPAP at 7 cmH2O appeared to be optimal (AHI of 0.3 per hour on the pressure). There was supine REM sleep on the pressure. Oxygen saturation was normal throughout the night. Lower CPAP settings appeared adequate as well. The patient tolerated positive airway pressure therapy well. I explained how CPAP machine works and what to expect when using the machine. Using CPAP every night in order to get used to it was emphasized. Patient advised to put CPAP mask on before getting into bed so as not to fall asleep without CPAP. To assist acclimation to CPAP use, it could also be used for a short time during day while reading or watching TV. The patient was instructed to call the CPAP supplier to discuss any mechanical problem that may occur. If the mask given is uncomfortable or is difficult to keep on through the night even with adjustment, contact the CPAP supplier as many will replace with another mask style if notified before 30 days. If snoring or perceives is not getting enough air or too much air from the machine, notify this office. Patient does not drink alcohol. Patient was cautioned about risks of drowsy driving until sleepiness symptoms resolve. Patient denies drowsy driving. Sleep Study - Results Type of Sleep Study: Home sleep study (COMPLETED 06/11/23 TITRATION F/U COMPLETED 08/09/23) Prior sleep studies: No Polysomnography/Home Sleep Study results: IMPRESSION: The quality of the study is good. CPAP was initiated at 5 cmH2O and titrated up to CPAP at 8 cmH2O. CPAP at 7 cmH2O appeared to be optimal (AHI of 0.3 per hour on the pressure). There was supine REM sleep on the pressure. Oxygen saturation was normal throughout the night. Lower CPAP settings appeared adequate as well. The patient tolerated positive airway pressure therapy well. The patients sleep efficiency was slightly reduced. The sleep architecture was relatively normal considering the first- night effect. There was no periodic leg movement of sleep. Cardiac rhythm was normal sinus rhythm without significant arrhythmia. No abnormal behavior (parasomnia) observed during the night. CONCLUSIONS and RECOMMENDATIONS: 1. Obstructive sleep apnea-hypopnea (ICD-10 G47.33), moderate (AHI was 29.1 by a home sleep apnea test), adequately controlled with CPAP at 7 cmH2O. CPAP therapy is, therefore, recommended at the pressure setting. AutoCPAP set between 4 and 8 cmH20 is also appropriate. Mask used was a ResMed AirTouch F-20 full face mask size medium. With BMI of 32.0 Kg/M2 , weight loss is also recommended. Allergies and Home Medications Known drug allergies: No Drug allergies reviewed: Yes Home medication list reviewed: Yes (no changes) Allergy and home medication list: Allergies No Known Drug Allergies Allergy (Verified 08/31/23 08:21) Review of Systems Review of systems same as previous: Yes (NO CHANGE) Physical Exam Vital signs obtained and entered by: CARMINA Marsh MA Blood Pressure: 118/74 (LEFT ARM) Cuff size: long Heart Rate: 73 O2 Saturation: 99 Height: 5 ft 2 in Weight: 165 lb (IN UNIFORM) Weight change since last visit: 10 lb loss Body Mass Index: 30.2 BMI Classification: Obese Impression and Plan 1. Obstructive Sleep Apnea-Hypopnea Syndrome, moderate. Patient returns to office after titration study to be set up with PAP therapy. Positive pressure therapy could benefit anxiety, depression, mood disorder and attention deficit. Titration study showed optimal pressure setting to be 7 cm H2O with average AHI at 0.3/h on that pressure. It was noted that pressure set at 4-8 cm H2O was also appropriate. The patient will be started on nasal autoCPAP therapy with pressure set at 7 cmH2O. Compliance guidelines also reviewed. A copy of compliance guidelines will be given for reference at check out. Patient voiced understanding and agreement with plan of care. 2. Obesity, unspecified. Currently patients BMI is 30.2. She has lost weight. Obesity increases the risk of apnea, CPAP pressure requirements and overall health risks especially cardiovascular and diabetes. Thus patient is advised to continue to try to lose weight. * Nasal CPAP therapy, pressure at 7 cm H2O. * Continue to try to lose weight. * Avoid alcohol consumption near bedtime. * Avoid supine sleep until using CPAP. * The patient is again cautioned about driving until sleepiness completely resolves. * Return one month after CPAP obtained. I will assess response to therapy and compliance at that time. Counseling Topics: Weight loss health impact Prescriptions: Auto CPAP Plan: start CPAP and compliance follow up Visit Type: In Office Time Spent with Patient (minutes): 20 Provider Statement: I spent 100% of the Face to Face Visit with the patient with greater than 50% spent counseling the patient and coordination of care.
[2023-09-02 10:21] VITALS: BP 118/74; O2SAT 99
== END 2023-09-02 09:49 | disposition home or self-care (01) ==
LOC: SC 09:48
PROVIDERS: ATTEND Nurse Practitioner Family
DX: G47.33 Obstructive sleep apnea (adult) (pediatric) (principal); E66.9 Obesity, unspecified; Z68.30 Body mass index [BMI] 30.0-30.9, adult
CPT/HCPCS: 99212; 99213

== ENCOUNTER 2023-12-10 09:44 | Outpatient (CLI) | payer OTHER ==
--- NOTE | 2023-12-10 10:19 | Sleep Patient Instructions ---
Sleep Center Visit Summary - Patient Visit Information Reason for Visit: First compliance with CPAP Follow-up - Patient Instructions Additional Instructions: You were here for follow up of CPAP therapy. You will be continued on CPAP therapy with pressure at 4-8 cmH2O. Please let us know if the pressure change is uncomfortable and we can make further adjustments of the pressure. You should follow up with sleep care in 1-2 months. You may contact us sooner for any questions or concerns. - Clinic Information Contact: [facility] [address] [place] [address] [email or web address] T: [phone]
--- NOTE | 2023-12-10 10:24 | SLEEP CARE CONSULTATION ---
Information from patient questionnaire entered by Kurtis Ha. I have reviewed and concur with the information entered by Kurtis Ha. This document represents the service I personally performed and the decisions made by , Marcela Snowden ARNP. History of Present Illness Service Date and Time: 12/10/2023 0944 Previous diagnosis: Moderate, Obstructive Sleep Apnea-Hypopnea Syndrome AHI: 29.1 Reason for follow up: first compliance (Set up 09/10/23) Equipment type: CPAP (Airsense 11, s/u 09/10/2023) Equipment obtained from: Other ([facility]; got initial supplies) Mask style: Nasal Backup mask available: No Prior sleep studies: No Type of Sleep Study: Home sleep study (COMPLETED 06/11/23 TITRATION F/U COMPLETED 08/09/23) Sleep Study - Results Type of Sleep Study: Home sleep study (COMPLETED 06/11/23 TITRATION F/U COMPLETED 08/09/23) Prior sleep studies: No CPAP Compliance Data - Data Reviewed with Patient Average duration of nightly device use: 3 h 33 mins Compliance rate %: 13 (01/02 days used) Current pressure setting (cmH2O): 7 Average residual AHI: 1.8 Central apnea: 0.4 Obstructive apnea: 0.8 Hypopnea: 0.5 Average large leak: 0 L/min Subjective Missed days of use due to: reports: illness, travel Patient concerns: reports: nasal congestion (just issue with nose), dry mouth, nose, throat (dry nose), other (Headache, dizzy). denies: aerophagia, mask discomfort, air blowing in eyes, mask leak noise, condensation in mask/hose, epistaxis Observed to snore while using device: No Current pressure setting perceived as: comfortable On therapy, patient: reports: sleeping better, more rested overall. denies: drowsiness while driving Initial [place] Sleepiness Scale score: 18 (04/14/2023) Current [place] Sleepiness Scale score: 17 (12/10/2023) Allergies and Home Medications Known drug allergies: No Drug allergies reviewed: Yes Home medication list reviewed: Yes (no changes) Allergy and home medication list: Allergies No Known Drug Allergies Allergy Review of Systems Review of systems same as previous: Yes (no changes) Physical Exam Vital signs obtained and entered by: Marcela Baker NP Blood Pressure: 112/78 Cuff size: regular (right arm) Heart Rate: 90 O2 Saturation: 96 Height: 5 ft 2 in Weight: 165 lb 3.2 oz Body Mass Index: 30.2 BMI Classification: Obese Impression and Plan 1. Obstructive Sleep Apnea-Hypopnea Syndrome, moderate, with poor treatment compliance and good apnea control. On CPAP therapy, the patient has better sleep quality and is more rested overall. She does like using CPAP because she does feel a difference but has not been using it consistently. I encouraged her to try to use it more consistently and for longer periods up to 6-1/2 to 7 hours as this will help her to improve that daytime sleepiness. She says she has been having some dizziness and headaches in the morning, but it does not matter if she is using her CPAP or not. I encouraged her to see her primary doctor about this and she voiced understanding. She feels that sometimes she is taking the mask off because she needs more air during the night. I will adjust her pressure to 4-8 cmH2O for air hunger and have her follow-up in 1 to 2 months. Patient's apnea severity and rationale for treatment to reduce apnea, improve sleep quality and reduce cardiovascular and cerebrovascular events was reviewed. I also reviewed the benefit of consistent device use of CPAP for depression/anxiety, mood disorder and attention deficit. 2. Obesity, unspecified. Currently patients BMI is 30.2. She is trying to lose weight. Obesity increases the risk of apnea, CPAP pressure requirements and overall health risks especially cardiovascular and diabetes. Thus patient is advised to continue to try to lose weight. * Change auto CPAP pressure to 4-8 cmH2O * Notify me if snoring with mask or feeling that the pressure is too much or too little * Attempt to lose weight * Call this office if any problems using CPAP * Return for follow up in 1-2 months, or sooner if concerns arise This note may have been all or partially generated using voice recognition software. Although every effort is made to edit content, accounts officer errors may occur. Occasional wrongword or "soundalike" substitutions may have occurred due to the inherent limitations of voice recognition software. Please read the note carefully and recognize, using context, where these substitutions have occurred. Adjust device pressure to (cmH2O): 4-8 Counseling Topics: Spare mask Follow up with Sleep Care in: 1-2 months Visit Type: In Office Time Spent with Patient (minutes): 23 Provider Statement: I spent 100% of the Face to Face Visit with the patient with greater than 50% spent counseling the patient and coordination of care.
[2023-12-10 10:32] VITALS: BP 112/78; O2SAT 96
== END 2023-12-10 09:45 | disposition home or self-care (01) ==
LOC: SC 09:44
PROVIDERS: ATTEND Nurse Practitioner Family
DX: G47.33 Obstructive sleep apnea (adult) (pediatric) (principal); E66.9 Obesity, unspecified; Z68.30 Body mass index [BMI] 30.0-30.9, adult
CPT/HCPCS: 99212; 99213